=== PATIENT | female | born 1975 | race Two or more races ===

== ENCOUNTER → 2022-04-10 08:54 | Outpatient (BNVA) | payer OTHER, SELFPAY | PROVIDERS: PCP Physician Assistant; Visit Provider Psychiatry & Neurology Neurology | DX: G43.909 Migraine, unspecified, not intractable, without status migrainosus (principal); R42 Dizziness and giddiness; M54.2 Cervicalgia | CPT/HCPCS: 99202 ==

== ENCOUNTER → 2022-05-08 08:37 | Outpatient (BNVA) | payer OTHER, SELFPAY | PROVIDERS: PCP Physician Assistant; Visit Provider Nurse Practitioner Family | DX: G43.909 Migraine, unspecified, not intractable, without status migrainosus (principal); M54.2 Cervicalgia; R42 Dizziness and giddiness | CPT/HCPCS: 99212 ==

== ENCOUNTER → 2022-08-14 13:50 | Outpatient (BNVA) | payer OTHER, SELFPAY | PROVIDERS: PCP Physician Assistant; Visit Provider Nurse Practitioner Family | DX: R42 Dizziness and giddiness (principal); G43.909 Migraine, unspecified, not intractable, without status migrainosus; M54.2 Cervicalgia | CPT/HCPCS: 99212 ==

== ENCOUNTER → 2022-11-17 10:37 | Outpatient (BNVA) | payer OTHER, SELFPAY | PROVIDERS: PCP Physician Assistant; Visit Provider Nurse Practitioner Family | DX: G43.909 Migraine, unspecified, not intractable, without status migrainosus (principal); M54.2 Cervicalgia; R42 Dizziness and giddiness | CPT/HCPCS: 99212 ==

== ENCOUNTER → 2023-03-16 13:52 | Outpatient (BNVA) | payer MEDICAID, SELFPAY | PROVIDERS: PCP Physician Assistant; Visit Provider Nurse Practitioner Family | DX: G43.909 Migraine, unspecified, not intractable, without status migrainosus (principal); M54.2 Cervicalgia; R42 Dizziness and giddiness | CPT/HCPCS: 99212 ==

== ENCOUNTER 2023-07-16 13:42 | Outpatient (AMB) | payer MEDICAID, SELFPAY ==
[2023-07-16 13:52] VITALS: BP 124/88; PULSE 74; O2SAT 99; BMI 34.1
--- NOTE | 2023-07-16 13:52 | MHC.OFFVIS ---
Intake Vital Signs 07/16/23 13:52 Height 5 ft 7 in Weight 217 lb 8 oz BMI 34.1 BP 124/88 Blood Pressure Location Rt brachial Position Sitting Pulse 74 Pulse Source Pulse Oximeter Pulse Oximetry (%) 99 Oxygen Delivery Method Room Air Intake Visit Reasons: 4m f/u dizziness/sleep - Conf Intake Note: Pt presents to the office today for a 4 month follow up for dizziness and sleep. Pt states her dizziness has been doing good since her last visit. Pt states she only had one episode of dizziness since her last appt. Pt states she is having insomnia but she believes it is due to a lot of things like her pain in her arm from her surgery and her fibromylagia. Allergies No Known Allergies Allergy (Verified 07/16/23 13:53) HPI HPI Comments History of Present Illness Details 47 y/o female patient presents for follow up of migraine, cervicalgia, vertigo and sleep problem. Pt reports that headache frequency intensity has improved a lot. She had really bad headache for two weeks after left hand tendon surgery. However, she did not have any headache since then. Amitriptyline helps for fibromyalgia and sleep. Pt reports vertigo has also improved. She did not need to use meclizine. She found that she feels dizzy when she had panic attack. She finished neck PT and neck pain has improved. She does daily PT exercise at home. Pt uses cyclobenzaprine 10 mg nightly. [facility] Medical History Pneumonia due to COVID-19 virus Arthritis Anemia Depression Thyroid activity decreased Memory loss Sleep disorder Headache Fibromyalgia Surgical History Hx of carpal tunnel repair Hx of partial thyroidectomy Family History Father HTN (hypertension) Diabetes Osteoarthritis Mother Diabetes Brother Diabetes Son Obese Son Pascual-Danlos syndrome type III Social History Household Members: Children Alcohol intake: never Patient Tobacco Use Status: Never used Tobacco Review of Systems Const All systems reviewed & are unremarkable except as noted in HPI and below ENT Reports Normal hearing present Neuro Reports Normal hearing present Physical Exam Vital Signs: Last Vital Signs Pulse 74 07/16/23 13:52 BP 124/88 07/16/23 13:52 Pulse Ox 99 07/16/23 13:52 Oxygen Delivery Method Room Air 07/16/23 13:52 BMI result Body Mass Index 34.1 Const General: cooperative, comfortable and no acute distress Nutritional Appearance: average body habitus Orientation/consciousness: patient oriented x3 Limitations: no limitations HEENT Head: Yes normal to inspection, Yes No palpable skull fracture present, Yes normocephalic and Yes atraumatic Eyes Pupils: Equal, round and reactive pupils present Neck Other: neck and shoulder muscle tightness. Neck: Yes full ROM and Yes supple Neuro General: patient oriented x3, gait normal, tone normal, moves all extremities, no focal motor deficits and CN's II-XI intact bilaterally Cranial nerves: Yes Facial sensation intact/muscles of mastication intact, Yes Equal, round and reactive pupils present, Yes Bilaterally intact EOM present, Yes Nystagmus not present, Yes Normal facial strength present, Yes Midline tongue present and Yes Normal hearing present Cognition (Neuro): normal cognition Gait exam (Neuro): Normal gait present Motor exam (neuro): 5/5 motor strength present throughout, Pronator motor function not present, no tremor noted, Normal motor muscle tone present throughout and Motor abnormalities not present Assessment & Plan Assessment & Plan (1) Migraine: Code(s): G43.909 - Migraine, unspecified, not intractable, without status migrainosus (2) Cervicalgia: Code(s): M54.2 - Cervicalgia (3) Vertigo: Comment: mild and likely ? vestibular dysfunction following COVID ? muscle spasm Code(s): R42 - Dizziness and giddiness Plan Advised patient to continue to take amitriptyline tp 25 mg qHS to help fibromyalgia and sleep. Continue Magnesium 400 mg qHS and vitamin B2 400 mg daily. Continue to take cyclobenzaprine 10 mg qHS as needed. Continue to take gabapentin 600 mg TID for migraine prevention and fibromyalgia. Coding Level of Care Code Est Pt Level 4 (04415) Diagnoses Migraine G43.909 Cervicalgia M54.2 Vertigo R42
== END 2023-07-16 14:16 | disposition home or self-care (01) ==
PROVIDERS: PCP Physician Assistant; Visit Provider Nurse Practitioner Family
DX: G43.909 Migraine, unspecified, not intractable, without status migrainosus (principal); M54.2 Cervicalgia; R42 Dizziness and giddiness
CPT/HCPCS: 99214

== ENCOUNTER → 2023-07-16 13:42 | Outpatient (BNVA) | payer MEDICAID, SELFPAY | PROVIDERS: PCP Physician Assistant; Visit Provider Nurse Practitioner Family | DX: R42 Dizziness and giddiness (principal); G43.909 Migraine, unspecified, not intractable, without status migrainosus; M54.2 Cervicalgia; Z79.899 Other long term (current) drug therapy | CPT/HCPCS: 99212 ==

== ENCOUNTER 2024-01-14 12:34 | Outpatient (AMB) | payer MEDICAID, SELFPAY ==
--- NOTE | 2024-01-14 12:59 | A.OFFVIS_ITS ---
Intake Vital Signs 01/14/24 13:09 Height 5 ft 7 in Weight 228 lb 2 oz BMI 35.7 BP 134/80 Blood Pressure Location Rt brachial Position Sitting Pulse 72 Pulse Source Pulse Oximeter Pulse Oximetry (%) 99 Oxygen Delivery Method Room Air Intake Visit Reasons: 6 mnts f/u for dizziness/sleep Intake Note: Patient presents for 6 moths F/U. Lots of headaches Allergies No Known Allergies Allergy (Verified 01/14/24 13:05) HPI HPI Comments History of Present Illness Details 48 y/o female patient presents for follo w up of migraine, cervicalgia, vertigo and sleep problem. Pt reports that headache frequency and intensity has improved a lot. Anxiety usually triggers headache. She still can have mild headache, three times a week, but it does not happen every week. Excedrin migraine usually helps to reduce the headache. She takes magnesium 400 mg qHS and vitamin B2 400 mg qdaily. Amitriptyline 25 mg helps for fibromyalgia and it helps her sleep better. Pt reports vertigo has also improved. Had a one episode couple of months ago. She did not need to use meclizine. She found that she feels dizzy when she had panic attack. She finished neck PT and neck pain has improved. She does daily PT exercise at home. Pt uses cyclobenzaprine 10 mg nightly. She started exercise, goes to gym. [facility] Medical History (Updated 01/14/24 @ 13:08 by Marian Buchanan CMA) Tendonitis Pneumonia due to COVID-19 virus Arthritis Anemia Depression Thyroid activity decreased Memory loss Sleep disorder Headache Fibromyalgia Surgical History Hx of carpal tunnel repair Hx of partial thyroidectomy Family History Father HTN (hypertension) Diabetes Osteoarthritis Mother Diabetes Brother Diabetes Son Obese Son Pascual-Danlos syndrome type III Social History Household Members: Children Alcohol intake: never Patient Tobacco Use Status: Never used Tobacco Review of Systems Const All systems reviewed & are unremarkable except as noted in HPI and below ENT Reports Normal hearing present Neuro Reports Normal hearing present Physical Exam Vital Signs: Last Vital Signs Pulse 72 01/14/24 13:09 BP 134/80 01/14/24 13:09 Pulse Ox 99 01/14/24 13:09 Oxygen Delivery Method Room Air 01/14/24 13:09 BMI result Body Mass Index 35.7 Const General: cooperative, comfortable and no acute distress Nutritional Appearance: average body habitus Orientation/consciousness: patient oriented x3 Limitations: no limitations HEENT Head: Yes normal to inspection, Yes No palpable skull fracture present, Yes normocephalic and Yes atraumatic Eyes Pupils: Equal, round and reactive pupils present Neck Other: neck and shoulder muscle tightness. Neck: Yes full ROM and Yes supple Neuro General: patient oriented x3, gait normal, tone normal, moves all extremities, no focal motor deficits and CN's II-XI intact bilaterally Cranial nerves: Yes Facial sensation intact/muscles of mastication intact, Yes Equal, round and reactive pupils present, Yes Bilaterally intact EOM present, Yes Nystagmus not present, Yes Normal facial strength present, Yes Midline tongue present and Yes Normal hearing present Cognition (Neuro): normal cognition Gait exam (Neuro): Normal gait present Motor exam (neuro): 5/5 motor strength present throughout, Pronator motor function not present, no tremor noted, Normal motor muscle tone present throughout and Motor abnormalities not present Assessment & Plan Assessment & Plan (1) Migraine: Code(s): G43.909 - Migraine, unspecified, not intractable, without status migrainosus (2) Cervicalgia: Code(s): M54.2 - Cervicalgia (3) Vertigo: Comment: mild and likely ? vestibular dysfunction following COVID ? muscle spasm Code(s): R42 - Dizziness and giddiness Plan Advised patient to continue to take amitriptyline tp 25 mg qHS to help fibromyalgia and sleep. Continue Magnesium 400 mg qHS and vitamin B2 400 mg daily. Continue to take cyclobenzaprine 10 mg qHS as needed. Continue to take gabapentin 600 mg TID for migraine prevention and fibromyalgia. Coding Level of Care Code Est Pt Level 4 (76785) Diagnoses Migraine G43.909 Cervicalgia M54.2 Vertigo R42
[2024-01-14 13:09] VITALS: BP 134/80; PULSE 72; O2SAT 99; BMI 35.7
== END 2024-01-14 14:19 | disposition home or self-care (01) ==
PROVIDERS: PCP Physician Assistant; Visit Provider Nurse Practitioner Family
DX: G43.909 Migraine, unspecified, not intractable, without status migrainosus (principal); M54.2 Cervicalgia; R42 Dizziness and giddiness
CPT/HCPCS: 99214

== ENCOUNTER → 2024-01-14 12:34 | Outpatient (BNVA) | payer MEDICAID, SELFPAY | PROVIDERS: PCP Physician Assistant; Visit Provider Nurse Practitioner Family | DX: G43.909 Migraine, unspecified, not intractable, without status migrainosus (principal); M54.2 Cervicalgia; R42 Dizziness and giddiness | CPT/HCPCS: 99212 ==

== ENCOUNTER 2024-07-15 10:48 | Outpatient (AMB) | payer MEDICAID, SELFPAY ==
[2024-07-15 10:50] VITALS: BP 124/82; PULSE 82; O2SAT 99; BMI 35.2
--- NOTE | 2024-07-15 10:50 | A.OFFVIS_ITS ---
Vital Signs 07/15/24 10:50 Height 5 ft 7 in Weight 225 lb BMI 35.2 BP 124/82 Blood Pressure Location Rt brachial Position Sitting Pulse 82 Pulse Source Pulse Oximeter Pulse Oximetry (%) 99 Oxygen Delivery Method Room Air Intake Visit Reasons: Follow up dizziness/sleep Intake Note: Patient presents for follow up dizziness/sleep. patient states dizziness are coming and going now instead of frequent. Allergies No Known Allergies Allergy (Verified 07/15/24 10:53) Medication List - Last Reconciled 07/15/24 by JALEN Mcdowell amitriptyline 25 mg PO BEDTIME 30 days azithromycin For 500 mg dose pack: take 500 mg once daily for 3 days PO calcium carbonate (Calcium 600) 600 mg PO DAILY cyclobenzaprine 10 mg PO BEDTIME diclofenac sodium 75 mg PO BID PRN docusate sodium 100 mg PO DAILY ethambutol 400 mg PO 3XW gabapentin 600 mg PO TID magnesium oxide 400 mg PO BEDTIME 30 days meclizine 25 mg PO TID PRN riboflavin (vitamin B2) 400 mg PO DAILY 30 days rifampin 600 mg PO DAILY HPI Comments Details: 48-yr-old female presents for f/u visit of migraine, dizziness. Pt was previously seen by our former colleague Leobardo Brandon NP. 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 She would like to discuss previous brain MRI results showing non-specific left cerebral white matter changes. She has family h/o MS. She is having more headaches which are stronger overall. Headaches are worse when she is more stressed. She describes a severe pounding bilateral frontal headache a/w photophobia, phonophobia, nausea, and left lateral occipital and neck pain. She is having 2-3 migraine attacks per week, which last through the morning. She uses Excedrin which does help if she takes it when the headache is milder, but not if it more severe. She may feel dizzy in the morning. She also feels more tight and stiff in the morning- she attributes this to her fibromyalgia. She is prone to swelling in her abdomen, her legs, and especially her ankles. It is hard for her to be physically active d/t the headaches, stiffness, and pain. She feels depressed and anxious d/t her mx medical issues which cause her to be unable to work. She is f/b [facility] for her fibromyalgia. Taking Gabapentin 600mg bid-tid, as it can make her sleepy. She has low back pain as well- she is f/b [facility]. She has fatigue, and difficulty sleeping which she attributes to her hip and back pain. She has a h/o mild sleep apnea- but she is not using a CPAP machine as she states she was told her GENEVIEVE was mild. She has gained > 10lbs in the last year. [facility] Medical History (Updated 07/15/24 @ 17:48 by JALEN Mcdowell) Tendonitis Pneumonia due to COVID-19 virus Arthritis Anemia Depression Thyroid activity decreased Memory loss Sleep disorder Headache Fibromyalgia Surgical History Hx of carpal tunnel repair Hx of partial thyroidectomy Family History Father HTN (hypertension) Diabetes Osteoarthritis Mother Diabetes Brother Diabetes Son Obese Son Pascual-Danlos syndrome type III Social History Household Members: Children Alcohol intake: never Patient Tobacco Use Status: Never used Tobacco Physical Exam Vital Signs: Last Vital Signs Pulse 82 07/15/24 10:50 BP 124/82 07/15/24 10:50 Pulse Ox 99 07/15/24 10:50 Oxygen Delivery Method Room Air 07/15/24 10:50 BMI result Body Mass Index 35.2 Const General: cooperative and no acute distress Orientation/consciousness: patient oriented x3 Resp Effort & Inspection: normal respiratory effort and able to speak in complete sentences Neuro General: patient oriented x3 Cranial nerves: Yes CN's II-XII intact bilaterally Cognition (Neuro): normal cognition Psych Appearance: grossly normal Mental Status: mental status grossly normal Speech and movement: Normal speech and movement present Affect: normal affect Attitude: cooperative Assessment & Plan Assessment & Plan (1) Worsening headaches: Code(s): R51.9 - Headache, unspecified Category: Medical (2) Migraine: Code(s): G43.909 - Migraine, unspecified, not intractable, without status migrainosus Category: Medical (3) Obstructive sleep apnea: Comment: has never tried CPAP tx Code(s): G47.33 - Obstructive sleep apnea (adult) (pediatric) Category: Medical (4) Vertigo: Comment: mild and likely ? vestibular dysfunction following COVID ? muscle spasm Code(s): R42 - Dizziness and giddiness Category: Medical (5) Fibromyalgia: Code(s): M79.7 - Fibromyalgia Category: Medical (6) White matter abnormality on MRI of brain: Code(s): R90.82 - White matter disease, unspecified Category: Medical Plan Pt advsied to undergo brain MRI w/wo to assess status of white matter changes in setting of worsening headaches, chronic Mycobacterium chimaera infection. Pt may benefit from revisiting and tx'ing her GENEVIEVE status. Call placed to her sewing machine operator paper bags Dr Mitchell at [facility] to discuss. Order sent for pro-biotic and pt encouraged to eat yogurt as this may reduce some of her vaginal symptoms. For overall headache management: It is important to practice good self-care, including but not limited to eating a healthy diet, drinking enough fluids (typically 64 oz per day), maintaining a good sleep routine, and engaging in regular physical activity (typically 30-45 minutes of moderate physical activity 5 days per week). To help us better understand your headache: Track headaches. For acute headache treatment: It is important to take as needed acute medications at the first sign of headache, however you want to avoid taking most as needed headache too often as this can lead to medication overuse/adaptation headaches. Trial Sumatriptan 100mg tab, 1/2 - 1 tab (50-100mg) at onset of headache, may repeat in 2 hours. Max of 2 tabs (200mg) per 24 hours. May adjunct with OTC Tylenol 650mg q 4 hours, Ibuprofen 600mg q 6 hours, or Naproxen 440mg q 12 hrs prn. Potential adverse effects of triptans, include but are not limited to nausea, fatigue, chest tightness/tingling (usually passes within a few minutes), medication overuse headaches. Previous acute migraine medication trials: excedrin- not always effective Acute migraine medication contraindications: none at this time For headache prevention medication: Preventative medications should be taken routinely as prescribed for best effect, it may take several weeks to see full effect. Continue Riboflavin 400mg qam Continue Magnesium 400mg qhs Start Propranolol 60mg ER qhs. Potential side effects include but are not limited to fatigue, lightheadedness, low blood pressure, low heart rate, asthma/respiratory disease exacerbation, weight gain, hair loss, sexual dysfunction. Continue Amitriptyline 25mg qhs for now- cannot increase dose as pt already has dry mouth//constipation. 1 month after starting propranolol- try weaning off of amitriptyline. Previous migraine prevention medication trials: none Migraine prevention medication contraindications: none at this time Will follow-up upon review of above and patient to follow-up in clinic in 6 months or sooner prn. Orders: Orders MR head/brain wo/w con Today A31.0 - Pulmonary mycobacterial infection, R42 - Dizziness and giddiness, R51.9 - Headache, unspecified, R90.82 - White matter disease, unspecified Medications: New lactobacillus combination no.9 (Adult 50 Plus Probiotic) 4,000 mmu cells PO DAILY 30 days 30 caps 3RF sumatriptan succinate (0.5 - 1 x 100 mg) 50 - 100 mg orally at onset of headache, may repeat in 2 hrs PRN; max 2 tabs per day or 4 tabs/week (may take with Ibuprofen) 30 days 12 tabs 6RF migraine headache propranolol ER 60 mg PO BEDTIME 30 days 30 caps 3RF Refilled magnesium oxide 400 mg PO BEDTIME 30 days 30 caps 6RF riboflavin (vitamin B2) 400 mg PO DAILY 30 days 30 tabs 6RF Coding Level of Care Code Est Pt Level 4 (46871) Complex EM visit Add On G2211 Diagnoses Worsening headaches R51.9 Migraine G43.909 Obstructive sleep apnea G47.33 Vertigo R42 Fibromyalgia M79.7 White matter abnormality on MRI of brain R90.82
== END 2024-07-15 12:01 | disposition home or self-care (01) ==
PROVIDERS: PCP Physician Assistant; Visit Provider Nurse Practitioner Family
DX: R51.9 Headache, unspecified (principal); G43.909 Migraine, unspecified, not intractable, without status migrainosus; G47.33 Obstructive sleep apnea (adult) (pediatric); R42 Dizziness and giddiness; M79.7 Fibromyalgia; R90.82 White matter disease, unspecified
CPT/HCPCS: 99214

== ENCOUNTER → 2024-07-15 10:48 | Outpatient (BNVA) | payer MEDICAID, SELFPAY | PROVIDERS: PCP Physician Assistant; Visit Provider Nurse Practitioner Family | DX: G43.909 Migraine, unspecified, not intractable, without status migrainosus (principal); G47.33 Obstructive sleep apnea (adult) (pediatric); R42 Dizziness and giddiness; M79.7 Fibromyalgia; R09.82 Postnasal drip; A31.0 Pulmonary mycobacterial infection | CPT/HCPCS: 99212 ==

== ENCOUNTER 2024-08-09 10:00 | Outpatient (REF) | payer MEDICAID, SELFPAY ==
--- NOTE | ~2024-08-09 | MR_ITS ---
EXAMINATION: MR BRAIN WITHOUT AND WITH CONTRAST CLINICAL INFORMATION: Headaches. COMPARISON: CT head from 01/17/2016. TECHNIQUE: MRI of the brain was obtained using routine sequences without and following the administration of 10 mL of Gadavist intravenous contrast. FINDINGS: No focal restricted diffusion is demonstrated to suggest acute or subacute cerebral ischemia. No evidence of acute or chronic hemorrhagic products on heme-sensitive imaging. Few nonspecific scattered foci of T2 FLAIR hyperintensity within the bifrontal lobes. No additional parenchymal signal abnormalities. The ventricles are normal in morphology and size. No abnormal mass effect. No midline shift. Normal appearance of the pituitary gland. Normal positioning of the cerebellar tonsils. Normal arterial and venous vascular flow voids are present. No abnormal contrast enhancement. Normal, homogeneous marrow signal. Mild mucosal thickening of the paranasal sinuses. No signal abnormalities within the mastoids. MR/MR head/brain wo/w con IMPRESSION: 1. No acute intracranial abnormalities. No abnormal intracranial enhancement. 2. Minimal nonspecific white matter changes. Electronically signed by: Mars Urbina DO 09/21/2024 05:45 AM STEPHANIE
[2024-08-09] MEDS: gadobutroL 10 ML VIAL IVPUSH (11:18)
== END 2024-08-09 10:01 | disposition home or self-care (01) ==
LOC: HO.MRI 10:00
PROVIDERS: PCP Physician Assistant; Visit Provider Nurse Practitioner Family
DX: R51.9 Headache, unspecified (principal); R90.82 White matter disease, unspecified; R42 Dizziness and giddiness; A31.0 Pulmonary mycobacterial infection
CPT/HCPCS: 70553; A9585

== ENCOUNTER → 2024-09-19 20:30 | Outpatient (BNV) | payer MEDICAID, SELFPAY | PROVIDERS: PCP Physician Assistant; Visit Provider Psychiatry & Neurology Neurology | DX: R06.83 Snoring (principal) | CPT/HCPCS: 95810 ==

== ENCOUNTER → 2024-09-19 20:30 | Outpatient (REF) | payer MEDICAID, SELFPAY ==
--- OUTSIDE RECORDS SUMMARY | 2024-09-21 18:13 | XMS_ITS | Continuity of Care Document ---
Author Organization [facility] Address [address] [place] [id number]- Care Team Providers Care Shuttle Operator Name Role Phone Dylan Rico Primary Care Physician Encounter [facility] [id number] Date(s): 08/11/24 - 09/10/24 [facility] [address] [place] [id number]- Attending Physician: Sindy Dejesus Admitting Physician: Sindy Dejesus Referring Physician: Sindy Dejesus Referring Physician: Farideh Heaton Referring Physician: John Canada RN Encounter Type: Triage Allergies, Adverse Reactions, Alerts No Known Medication Allergies Medications amitriptyline 10 mg oral tablet 10 mg, 1, tablet, By Mouth, Daily at bedtime, Refills 0, Maintenance, 03/24/22 7:01:00 AM EDT, Partial fill upon patient request if the prescription is for a schedule II opioid drug. Start Date: 03/24/22 Status: Ordered Repeat number: 1 azithromycin 500 mg oral tablet See Instructions, 1 tablet By Mouth three times per week, # 30 tablet, 11 Refills, Maintenance, 07/18/24 3:13:00 PM EDT, [id number], Partial fill upon patient request if the prescription is for a schedule II opioid drug., 163, cm, 07/10/24 10:22:00 EDT, Height, 104.9, kg, 07/10/24 4: 01:00 EDT, Dry Weight Start Date: 07/18/24 Status: Ordered Quantity: 30.0 Unit: tablet Repeat number: 12 budesonide-formoterol 80 mcg-4.5 mcg/inh inhalation aerosol with adapter 2, puffs, Inhalation, 2 times a day, # 1 each, Refills 11, Tot. Refills 11, Maintenance, 08/03/24 11:06:00 AM EDT, Aerosol, Route to Pharmacy Electronically, [id number], [facility] #[id number], 163, cm, 08/03/24 10:29:00 EDT, Height, 104.9, kg, 07/10/24 4:01:00 EDT, Dry Weight Start Date: 08/03/24 Status: Ordered Quantity: 1.0 Unit: each Repeat number: 12 Compression Stockings See Instructions, # 2 each, Refills 1, Tot. Refills 1, Maintenance, surgical, thigh high length 20-30 mm Hg Dx: Varicose Veins, 01/22/21 4:39:00 PM EDT, Supply Start Date: 01/22/21 Status: Ordered Quantity: 2.0 Unit: each Repeat number: 2 ethambutol 400 mg oral tablet See Instructions, 2,400mg three times per week, # 216 each, 5 Refills, Acute 10/12/24 10:13:00 AM EST, 09/16/24 10:56:00 AM EST, [facility], Partial fill upon patient request if the prescription is for a schedule II opioid drug., 163, cm, 07/10/24 10:22:00 EDT, Height, 104.9, kg, 07/10/24 4:01:00 EDT, Dry Weight Start Date: 09/16/24 Stop Date: 10/12/24 Status: Ordered Quantity: 216.0 Unit: each Repeat number: 6 Indication: Other fatigue ethambutol 400 mg oral tablet See Instructions, 2,400mg three times per week, # 216 each, 5 Refills, Maintenance, 10/12/24 10:13:00AM EST, [facility] #[id number], Partial fill upon patient request if the prescription is for aschedule II opioid drug., 163, cm, 07/10/24 10:22:00 EDT, Height, 104.9, kg, 07/10/24 4:01:00 EDT, Dry Weight Start Date: 10/12/24 Status: Ordered Quantity: 216.0 Unit: each Repeat number: 6 Indication: Other fatigue ethambutol 400 mg oral tablet See Instructions, 2,400mg three times per week, # 216 each, 1 Refills, Acute 09/16/24 10:56:00 AM EST, 07/14/24 1:36:00 PM EDT, [facility] #[id number], Partial fill upon patient request if the prescription is for a schedule II opioid drug., 163, cm, 07/10/24 10:22:00 EDT, Height, 104.9, kg, 07/10/24 4:01:00 EDT, Dry Weight Start Date: 07/14/24 Stop Date: 09/16/24 Status: Ordered Quantity: 216.0 Unit: each Repeat number: 2 Indication: Other fatigue Gabapentin = 600 mg, By Mouth, 2 times a day, PRN Other, Fibromyalgia pain, 0 Refills, Maintenance, 02/15/21 1:57:00 PM EDT, Partial fill upon patient request if the prescription is for a schedule II opioid drug. Start Date: 02/15/21 Status: Ordered Repeat number: 1 Metamucil 500 mg oral capsule 2 capsule = 1,000 mg, By Mouth, Daily, PRN for constipation, # 100 capsule, 1 Refills, Maintenance,06/02/22 9:10:00 AM EDT, Capsule, [facility] #[id number], Partial fill upon patient request if the prescription is for a schedule II opioid drug., 168, cm, 06/02/22 8:52:00 EDT, Height Start Date: 06/02/22 Status: Ordered Quantity: 100.0 Unit: capsule Repeat number: 2 Mirena 52 mg intrauterine device 1 each = 52 mg, Once, 0 Refills, Maintenance, 06/02/22 8:54:00 AM EDT, Partial fill upon patient request if the prescription is for a schedule II opioid drug. Start Date: 06/02/22 Status: Ordered Repeat number: 1 rifampin 300 mg oral capsule See Instructions, 2 capsule By three times per week, # 72 each, 5 Refills, Acute 10/12/24 10:13:00 AMEST, 07/16/24 4:51:00 PM EDT, [facility], Partial fill upon patient request if the prescription is for a schedule II opioid drug., 163, cm, 07/10/24 10:22:00 EDT, Height, 104.9, kg, 07/10/24 4:01:00 EDT, Dry Weight Start Date: 07/16/24 Stop Date: 10/12/24 Status: Ordered Quantity: 72.0 Unit: each Repeat number: 6 rifampin 300 mg oral capsule See Instructions, 2 capsule By three times per week, # 72 each, 5 Refills, Maintenance, 10/12/24 10:13:00 AM EST, [facility] #[id number], Partial fill upon patient request if the prescription is for a schedule II opioid drug., 163, cm, 07/10/24 10:22:00 EDT, Height, 104.9, kg, 07/10/24 4:01:00 EDT, Dry Weight Start Date: 10/12/24 Status: Ordered Quantity: 72.0 Unit: each Repeat number: 6 rifampin 300 mg oral capsule See Instructions, 2 capsule By three times per week, # 72 each, 1 Refills, Acute 09/16/24 10:57:00 AM EST, 07/14/24 1:36:00 PM EDT, [facility] #[id number], Partial fill upon patient request if theprescription is for a schedule II opioid drug., 163, cm, 07/10/24 10:22:00 EDT, Height, 104.9, kg, 07/10/24 4:01:00 EDT, Dry Weight Start Date: 07/14/24 Stop Date: 09/16/24 Status: Ordered Quantity: 72.0 Unit: each Repeat number: 2 Problem List Condition Confirmation Course Effective Dates Status Health St atus Informant Fatigue Confirmed Active Fibromyalgia Confirmed Active Headache Confirmed Active Insomnia Confirmed Active Obstructive sleep apnea Confirmed Active Severe obesity (BMI 35.0-39.9) with comorbidity Confirmed Active Social History Social History Type Response Tobacco Use: Never smoked.. Sex Sex Representation Female (finding) Radiology * Event Display: CT Scan Chest, Non- BH Authored Date: * Event Display: CT Scan Chest, Non- BH Authored Date: [id number] Patient Care team information Care Team Personnel Name: Dylan Rico Position: S Outreach Member Role: PCP Address: [address] [place] [address] Telecom: Care Team Related Persons Name: GUILLERMO AVERY Name: GUILLERMO AVERY SECONDARY Name: WALLCAE WOLFF Name: WALLACE WOLFF PRIMARY Insurance Providers Guarantor name: ENRIQUEMonserrat WAYNEY [facility] Information #: 1 Payer: [employer] Member Number: NA Policy Number: NA Group Number: NA
== END ==
LOC: HO.SL 20:30
PROVIDERS: PCP Physician Assistant; Visit Provider Nurse Practitioner Family
DX: G47.33 Obstructive sleep apnea (adult) (pediatric) (principal); J45.909 Unspecified asthma, uncomplicated; A31.0 Pulmonary mycobacterial infection
CPT/HCPCS: 95810

== ENCOUNTER 2025-01-23 12:03 | Outpatient (AMB) | payer MEDICAID, SELFPAY ==
--- NOTE | 2025-01-23 13:01 | A.OFFVIS_ITS ---
Vital Signs 3 01/23/25 13:02 Height 5 ft 7 in Weight 215 lb BMI 33.7 BP 120/90 H Blood Pressure Location Rt brachial Position Sitting Pulse 80 Pulse Source Pulse Oximeter Pulse Oximetry (%) 100 Oxygen Delivery Method Room Air Intake Visit Reasons: Follow Up Intake Note: Follow up Migraines. Ringing in ears. Recent med that was prescribe for migraines has been helpin Tubing Machine Operator Required: No Accompanied by: Self / Same As Patient Allergies Penicillins Allergy (Severe, Verified 01/23/25 13:09) Rash Medication List - Last Reconciled 01/23/25 by JALEN Mcdowell amitriptyline 25 mg PO BEDTIME 30 days azithromycin For 500 mg dose pack: take 500 mg once daily for 3 days PO calcium carbonate (Calcium 600) 600 mg PO DAILY cyclobenzaprine 10 mg PO BEDTIME diclofenac sodium 75 mg PO BID PRN docusate sodium 100 mg PO DAILY ethambutol 400 mg PO 3XW gabapentin 600 mg PO TID lactobacillus combination no.9 (Adult 50 Plus Probiotic) 4,000 mmu cells PO DAILY 30 days magnesium oxide 400 mg PO BEDTIME 30 days meclizine 25 mg PO TID PRN propranolol ER 60 mg PO BEDTIME 30 days riboflavin (vitamin B2) 400 mg PO DAILY 30 days sumatriptan succinate 50 - 100 mg orally at onset of headache, may repeat in 2 hrs PRN; max 2 tabs per day or 4 tabs/week (may take with Ibuprofen) 30 days HPI Comments Details: 49-year-old female presents for follow-up of migraine and dizziness. She has stopped her anti-M chimera tx, as she was not tolerating it, plan is to have f/u chest CT in the summer. Pt reports she has started to have bilateral, L > R, ear high-pitched tinnitus- worse at night. Prior to the onset of the tinnitus, she had left postauricular neck pain, and did have urgent care eval at her PCP office and was tx'd w/ ABT gtts for left ear infection. On f/u w/ her PCP, she was told her ears were clear though had wax presence. She has been having left arm stabbing/burning pain s/p tendon repair last year- through [facility]. Patient has started sumatriptan, and takes at the very first sign of migraine, which is effective. Reports 3 migraine days per week, which again are responsive to sumatriptan. Started propranolol ER 60 mg q.h.s.- states maybe it is helping the headache, but is not helping sleep. Patient states she continues on amitriptyline 25 mg q.h.s. Oct 2024, sleep study did show loud snoring but did not show evidence for sleep apnea or periodic limb movements of sleep. Her psychiatrist recently ordered trazodone to help with sleep. She does note some personal stress, related to the recent sudden loss of her which has been particularly upsetting for her mother. As well as her ongoing worry regarding her son who has MS. 08/09/2024, MR/MR head/brain wo/w con IMPRESSION: 1. No acute intracranial abnormalities. No abnormal intracranial enhancement. 2. Minimal nonspecific white matter changes. 07/15/2024, previous HPI: 48-yr-old female presents for f/u visit of migraine, dizziness. Pt was previously seen by our former colleague Leobardo Brandon NP. 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 She would like to discuss previous brain MRI results showing non-specific left cerebral white matter changes. She has family h/o MS. She is having more headaches which are stronger overall. Headaches are worse when she is more stressed. She describes a severe pounding bilateral frontal headache a/w photophobia, phonophobia, nausea, and left lateral occipital and neck pain. She is having 2-3 migraine attacks per week, which last through the morning. She uses Excedrin which does help if she takes it when the headache is milder, but not if it more severe. She may feel dizzy in the morning. She also feels more tight and stiff in the morning- she attributes this to her fibromyalgia. She is prone to swelling in her abdomen, her legs, and especially her ankles. It is hard for her to be physically active d/t the headaches, stiffness, and pain. She feels depressed and anxious d/t her mx medical issues which cause her to be unable to work. She is f/b [facility] for her fibromyalgia. Taking Gabapentin 600mg bid-tid, as it can make her sleepy. She has low back pain as well- she is f/b [facility]. She has fatigue, and difficulty sleeping which she attributes to her hip and back pain. She has a h/o mild sleep apnea- but she is not using a CPAP machine as she states she was told her GENEVIEVE was mild. She has gained > 10lbs in the last year. [facility] Medical History Tendonitis Pneumonia due to COVID-19 virus Arthritis Anemia Depression Thyroid activity decreased Memory loss Sleep disorder Headache Fibromyalgia Surgical History Hx of carpal tunnel repair Hx of partial thyroidectomy Family History Father HTN (hypertension) Diabetes Osteoarthritis Mother Diabetes Brother Diabetes Son Obese Son Pascual-Danlos syndrome type III Social History Household Members: Children Alcohol intake: never Patient Tobacco Use Status: Never used Tobacco Physical Exam Vital Signs: Last Vital Signs Pulse 80 01/23/25 13:02 BP 120/90 H 01/23/25 13:02 Pulse Ox 100 01/23/25 13:02 Oxygen Delivery Method Room Air 01/23/25 13:02 BMI result Body Mass Index 33.7 Const General: cooperative and no acute distress Orientation/consciousness: patient oriented x3 HEENT Other: Right TM- occluded by wax Left TM-mild effussion w/o erythema, purulence, pain Resp Effort & Inspection: normal respiratory effort and able to speak in complete sentences Neuro Other: Wearing left forearm brace Steady gait with cane General: patient oriented x3 Cranial nerves: Yes CN's II-XII intact bilaterally Cognition (Neuro): normal cognition Psych Appearance: grossly normal Mental Status: mental status grossly normal Speech and movement: Normal speech and movement present Affect: normal affect Attitude: cooperative Results Reviewed Results Reviewed: Assessment & Plan Assessment & Plan (1) Paresthesia of left upper extremity: Code(s): R20.2 - Paresthesia of skin Category: Medical (2) Migraine: Code(s): G43.909 - Migraine, unspecified, not intractable, without status migrainosus Category: Medical Qualifiers: Migraine type: migraine (< 15 days per month) without aura Status migrainosus presence: without status migrainosus Intractability: not intractable Qualified Code(s): G43.009 - Migraine without aura, not intractable, without status migrainosus (3) White matter abnormality on MRI of brain: Code(s): R90.82 - White matter disease, unspecified Category: Medical (4) Snoring: Code(s): R06.83 - Snoring Category: Medical (5) Bilateral tinnitus: Code(s): H93.13 - Tinnitus, bilateral Category: Medical Plan Reviewed brain MRI with and without contrast report and images with patient, white matter changes are very mild, not consistent with a demyelinating process. For sleep difficulties: Reviewed in-lab sleep study results, showed lab snoring however there were no signs of sleep apnea or periodic limb movements of sleep. * We will request ENT consult for evaluation snoring. Psychiatrist has recently advise patient to start trazodone 50 mg daily at bedtime- advise patient to may try this, however to monitor for changes in headache, as trazodone can exacerbate migraine symptoms. For recent onset bilateral left greater than right tinnitus: Brain MRI results reassuring, however MRI was completed prior to onset of tinnitus. Trial OTC debrox drops to right ear. Trial loratadine 10 mg p.o. q.h.s., and hopes this helps left TM effusion without signs of active infection. For LUE paresthesias and generalized fibromyalgia type pain old Check labs for common underlying etiologies We will request LUE EMG/NCS. For overall headache management: It is important to practice good self-care, including but not limited to eating a healthy diet, drinking enough fluids (typically 64 oz per day), maintaining a good sleep routine, and engaging in regular physical activity (typically 30-45 minutes of moderate physical activity 5 days per week). Track headaches. For acute headache treatment: Continue to take as needed acute medications at the first sign of headache, however you want to avoid taking most as needed headache too often as this can lead to medication overuse/adaptation headaches. Continue Sumatriptan 100mg tab, 1/2 - 1 tab (50-100mg) at onset of headache, may repeat in 2 hours. Max of 2 tabs (200mg) per 24 hours. May adjunct with OTC Tylenol 650mg q 4 hours, Ibuprofen 600mg q 6 hours, or Naproxen 440mg q 12 hrs prn. Previous acute migraine medication trials: excedrin- not always effective Acute migraine medication contraindications: none at this time For headache prevention medication: Continue Riboflavin 400mg qam Continue Magnesium 400mg qhs Continue Propranolol 60mg ER qhs. Continue Amitriptyline 25mg qhs for now- cannot increase dose as pt already has dry mouth//constipation. Previous migraine prevention medication trials: none Migraine prevention medication contraindications: none at this time Will follow-up upon review of above and patient to follow-up in clinic in 6 months or sooner prn. Orders: Orders 2 Complete Blood Count Auto Diff Today D64.9 - Anemia, unspecified, R20.2 - Paresthesia of skin, R73.03 - Prediabetes Vitamin B12 and Folate Today D64.9 - Anemia, unspecified, R20.2 - Paresthesia of skin, R73.03 - Prediabetes TSH reflex Free T4 Today D64.9 - Anemia, unspecified, R20.2 - Paresthesia of skin, R73.03 - Prediabetes Vitamin D 25-OH (D2 and D3) Today D64.9 - Anemia, unspecified, R20.2 - Paresthesia of skin, R73.03 - Prediabetes Methylmalonic Acid Today D64.9 - Anemia, unspecified, R20.2 - Paresthesia of skin, R73.03 - Prediabetes Homocysteine Today D64.9 - Anemia, unspecified, R20.2 - Paresthesia of skin, R73.03 - Prediabetes IRON PROFILE Today D64.9 - Anemia, unspecified, R20.2 - Paresthesia of skin, R73.03 - Prediabetes Hemoglobin A1c Today D64.9 - Anemia, unspecified, R20.2 - Paresthesia of skin, R73.03 - Prediabetes Comprehensive Met. Panel Today D64.9 - Anemia, unspecified, R20.2 - Paresthesia of skin, R73.03 - Prediabetes Folate Today D64.9 - Anemia, unspecified, R20.2 - Paresthesia of skin, R73.03 - Prediabetes Vitamin B6 Today D64.9 - Anemia, unspecified, R20.2 - Paresthesia of skin, R73.03 - Prediabetes Vitamin B1 Today D64.9 - Anemia, unspecified, R20.2 - Paresthesia of skin, R73.03 - Prediabetes Ferritin Today D64.9 - Anemia, unspecified, R20.2 - Paresthesia of skin, R73.03 - Prediabetes NE electromyogram (EMG) Today R20.2 - Paresthesia of skin, Z98.890 - Other specified postprocedural states NE nerve conduction velocity Today R20.2 - Paresthesia of skin, Z98.890 - Other specified postprocedural states Referrals 2 Ear/Nose/Throat Referral H93.13 - Tinnitus, bilateral, R06.83 - Snoring Medications: New 2 loratadine 10 mg PO DAILY 30 days 30 tabs 3RF Changed 2 From magnesium oxide 400 mg PO BEDTIME 30 days 30 caps 6RF To magnesium oxide 400 mg PO BEDTIME 90 days 90 caps 3RF From riboflavin (vitamin B2) 400 mg PO DAILY 30 days 30 tabs 6RF To riboflavin (vitamin B2) 400 mg PO DAILY 90 days 90 tabs 3RF Coding Level of Care Code Est Pt Level 4 (78513) Complex EM visit Add On G2211 Diagnoses Paresthesia of left upper extremity R20.2 Migraine without aura and without status migrainosus, not intractable G43.009 Migraine type: migraine (< 15 days per month) without aura Status migrainosus presence: without status migrainosus Intractability: not intractable White matter abnormality on MRI of brain R90.82 Snoring R06.83 Bilateral tinnitus H93.13
[2025-01-23 13:02] VITALS: BP 120/90; PULSE 80; O2SAT 100; BMI 33.7
--- OUTSIDE RECORDS SUMMARY | 2025-01-23 14:06 | XMS_ITS | Encounter Summary ---
Author Organization [facility] Address [address] [place] [address] Care Team Providers Care Radiological Metallurgist Name Role Phone Dylan Toribio Primary Care Provider [phone] Reason for Visit * Reason Comments Telehealth (Audio) Encounter Details Date Type Department Care Team ([facility] st Contact Info) Description 01/20/2025 9:30 AM EDT / Visits [facility] [address] [place] [phone] Michel Santana, TABLE WORKER [address] [place], [place] [id number] Major depressive disorder, single episode, mild (PACE-[facility] V24) (Primary Dx) Social History Tobacco Use Types Packs/Day Years Used Date Smoking Tobacco: Never Smokeless Tobacco: Never Alcohol Use Standard Drinks/Week Comments No 0 (1 standard drink = 0.6 oz pur e alcohol) Social Connections Answer Date Recorded Connectedness 1 09/15/2024 Financial Resource Strain Answer Date R ecorded Financial Resource Strain 1 2023 Stress Answer Date Recorded Stress 1 09/15/2024 Physical Activity Answer Date Recorded Physical Activity 0 08/23/2020 Food Insecurity Answer Date Recorded Food 1 09/15/2024 Transportation Needs Answer Date Record ed Transportation 1 09/15/2024 Housing Stability Answer Date Recorded Housing 1 09/15/2024 Safety and Environment Answer Date Rafi rded Safety 1 02/15/2024 Utilities Answer Date Recorded Utilities 1 09/15/2024 Employment Answer Date Recorded Stress 0 08/23/2020 Comments No Sex and Gender Information Value Date Recorded Sex Assigned at Female 02/12/2018 11:45 AM PDT Legal Sex Female 11:09 AM PDT Gender Identity Female 02/12/2018 11:45 AM PDT Sexual Orientation Straight 11/24/2018 11 :05 AM PST documented as of this encounter Plan of Treatment Upcoming Encounters Date Type Department Care Team (Late st Contact Info) Description 02/13/2025 1:45 PM EDT / Visits [facility] [address] [place] [phone] Michel Santana, TABLE WORKER [address] [place] [address] 04/04/2025 1:00 PM EDT / Visits [facility] [address] [place] [phone] Elodia Mcclendon PMHNP [address] [place] [address] documented as of this encounter Visit Diagnoses Diagnosis Major depressive disorder, single episode, mild ([facility] V24)- Primary Major depressive disorder, single episode, mild documented in this encounter Additional Health Concerns Assessment Noted Time PHQ-9 Depression Total Score: 15 025 9:02 AM PST documented as of this encounter Care Teams Radiological Metallurgist Relationship Specialty Start Date End Date Dylan Toribio PA [address] [place] [address] PCP - General Internal Medicine 07/20/18 documented as of this encounter
--- OUTSIDE RECORDS SUMMARY | 2025-01-23 14:06 | XMS_ITS | Clinical Summary ---
Author Organization [facility] Address [address] [place] [address] Care Team Providers Care Trailer Sections Assembler Name Role Phone Miranda Bautista MD Primary Care Provider Allergies Active Allergy Reactions Criticality Noted Date Comments Penicillins 04/21/2016 Medications Medication Sig Dispensed Refills Start Date End Date Status oxyCODONE-acetaminoph en (PERCOCET) 5-325 MG per tablet Take 1 tablet by mouth every 4 (four) hours as needed. 30 tablet 0 09/08/2016 Active Social History Tobacco Use Types Packs/Day Years Used Date Smoking Tobacco: Never Alcohol Use Standard Drinks/Week Comments No 0 (1 standard drink = 0.6 oz pur e alcohol) Sex and Gender Information Value Date Recorded Sex Assigned at Not on file Gender Identity Not on file Sexual Orientation Not on file Last Filed Vital Signs Vital Sign Reading Time Taken Comments Blood Pressure 117/80 08/29/2016 10:14 AM EST Pulse 61 08/29/2016 10:14 AM EST Temperature 36.1 ??C (96.9 ??F) 08/29/2016 9:17 AM ES T Respiratory Rate 17 08/29/2016 10:00 AM EST Oxygen Saturation 100% 08/29/2016 10:14 AM EST Inhaled Oxygen Concentration - - Weight 95.7 kg (211 lb) 08/28/2016 10:20 AM EST Height 167.6 cm (5' 6 ) 08/28/2016 10:20 AM EST Body Mass Index 34.06 08/28/2016 10:20 AM EST Plan of Treatment Health Maintenance Due Date Last Done Comments Hepatitis B Vaccines (1 of 3 - 3-dose series) 1974 Hepatitis C Screening 1974 COVID-19 Vaccine (#1) 06/27/1975 Depression Screening 1986 Preventative Health Evaluation 1992 DTap / Tdap / Td (1 - Tdap) 1993 Cervical Cancer Screening (P ap Smear) 12/26/1995 Colon Cancer Screening (Colonoscopy) 12/26/2019 Influenza Vaccine (#1) 2024 Breast Cancer Screening (Mammogram) 2024 Shingrix-Zoster Vaccine (1 of 2) 2024 Pneumococcal Vaccine Aged Out No long er eligible based on patient's age to complete this topic RSV Ped < 20 months Aged Out No longe r eligible based on patient's age to complete this topic Advance Directives For more information, please contact: [phone] Latest Code Status on File Code Status Date Activated Date Inactivated Comments Full Code 08/29/2016 7:11 AM 08/29/2016 4:46 PM Thi s code status was ascertained in the following way: discussion with patient. Care Teams Trailer Sections Assembler Relationship Specialty Start Date End Date Miranda Bautista MD [address] [place] [address] PCP - General Internal Medicine 04/30/16
--- OUTSIDE RECORDS SUMMARY | 2025-01-23 14:06 | XMS_ITS | Clinical Summary ---
Author Organization [facility] Address [address] [place] [address] Care Team Providers Care Chips Screen Tender Name Role Phone Dylan Toribio Primary Care Provider [phone] Source Comments PLEASE NOTE, if this patient is a minor, it may be UNLAWFUL to discuss sensitive information that is contained in these records (such as FAMILY PLANNING, MENTAL HEALTH or SUBSTANCE ABUSE) with the minor patient's parent or other person without the patient's specific authorization.[facility] Allergies Active Allergy Reactions Criticality Noted Date Comments Amoxicillin 11/18/2024 Medications glucosamine-chondr oitin 500-400 mg tabletIndications: Primary osteoarthritis involving multiple joints Take 1 Tab by mouth 3 (three) times daily 30 Tab 05/09/20 19 Active calcium carbonate-vitamin D3 600 mg(1,500mg) -400 unit tabletIndications: Primary osteoarthritis involving multiple joints Take 1 Tab by mouth 3 (three) times daily with meals 30 Tab 3 05/09/20 19 Active famotidine (PEPCID) 20 mg tabletIndications: Dyspepsia Take 1 Tablet by mouth 2 (two) times daily 180 Tablet 1 11/25/19 22 Active ferrous sulfate 324 mg (65 mg iron) TbECIndications:Hx of iron deficiency anemia Take 1 Tablet by mouth once daily with breakfast 30 Tablet 11/25/19 22 Active levonorgestreL (MIRENA) 20 mcg/24 hours (8 yrs) 52 mg IUD 52 mg 06/02/20 22 Active magnesium oxide (MAG-OX) 400 mg (241.3 mg magnesium) tablet TAKE ONE TABLET BY MOUTH AT BEDTIME FOR 30 DAYS 03/16/20 23 Active riboflavin, vitamin B2, 400 mg tab TAKE 1 TABLET BY MOUTH DAILY FOR 30 DAYS 03/16/20 23 Active SYMBICORT 80-4.5 mcg/actuation inhaler Inhale 2 Puffs into the lungs 2 (two) times daily 05/15/20 23 Active blood pressure monitor (BLOOD PRESSURE KIT)Indications:Id iopathic hypotension Use one kit at home to monitory hypotension, goal BP 120/80 1 Kit 10/19/19 24 Active brompheniramin-phe nylephrin-DM (DIMETAPP COLD & COUGH) 1-2.5-5 mg/5 mL solutionIndication s:Subacute cough Take 5 mL by mouth every 4 to 6 (four to six) hours as needed for congestion or other reason (cough) 473 mL 11/19/19 24 Active rifAMPin (RIFADIN) 300 mg capsule TAKE 2 CAPSULES BY MOUTH THREE TIMES A WEEK 01/18/20 24 Active ethambutoL (MYAMBUTOL) 400 mg tablet TAKE 6 TABLETS BY MOUTH 3 TIMES EVERY WEEK 01/18/20 24 Active amoxicillin-pot clavulanate (AUGMENTIN) 875-125 mg per tabletIndications: Left otitis media, unspecified otitis media type Take 1 Tablet by mouth 2 (two) times daily 14 Tablet 11/04/19 25 Active predniSONE 50 mg tabletIndications: Left otitis media, unspecified otitis media type Take 1 Tablet by mouth once daily 5 Tablet 11/04/19 25 Active SUMAtriptan succinate (IMITREX) 100 mg tabletIndications: Nonintractable episodic headache, unspecified headache type Take 100 mg by mouth 11/08/19 25 Active propranolol LA (INDERAL LA) 60 mg 24 hr capsuleIndications :Nonintractable episodic headache, unspecified headache type Take 60 mg by mouth nightly at bedtime Active diclofenac potassium (CATAFLAM) 50 mg tabletIndications: Nonintractable episodic headache, unspecified headache type,Neck pain TAKE 1 TABLET BY MOUTH THREE TIMES DAILY NEEDED FOR PAIN. DO NOT COMBINE WITH OTHER NSAID CLASS MEDICATIONS SUCH IBUPROFEN OR NAPROXEN 11/09/19 25 Active tirzepatide, weight loss, (ZEPBOUND) 2.5 mg/0.5 mL pnijIndications:Fi bromyalgia,Class 1 obesity,Obstructiv e sleep apnea,Other migraine without status migrainosus, not intractable,Predia betes,Elevated blood pressure reading Inject 2.5 mg weekly for 4 weeks, doubling dose every 4 weeks until maintenance dose reached (15 mg) 2 mL 1 12/15/19 25 Active gabapentin (NEURONTIN) 600 mg tabletIndications: Fibromyalgia,Predi abetes Take 1 Tablet by mouth 3 (three) times daily 90 Tablet 2 12/15/19 25 Active tirzepatide, weight loss, (ZEPBOUND) 5 mg/0.5 mL pnijIndications:Cl ass 1 obesity,Prediabete s Inject 5 mg into the skin once a week 2 mL 1 12/30/19 25 Active traZODone (DESYREL) 50 mg tabletIndications: Insomnia, unspecified type Take 1/2 to 1 tab by mouth as needed nightly for sleep. 90 Tablet 01/18/20 25 Active escitalopram (LEXAPRO) 10 mg tabletIndications: Major depressive disorder, single episode, mild ([facility] V24) Take 1 Tablet by mouth once daily for 90 days 90 Tablet 01/18/20 25 025 Active semaglutide (OZEMPIC) 0.25 mg or 0.5 mg (2 mg/3 mL) pen injectorIndication s:Obesity (BMI 35.0-39.9 without comorbidity),Predi abetes,Severe obesity (HCC-CMS) Inject 0.25 mg into the skin once a week 1.5 mL 05/24/20 24 025 Discontin ued(Cance lled) semaglutide, weight loss, (WEGOVY) 0.25 mg/0.5 mL pnijIndications:Pr ediabetes,Obesity (BMI 35.0-39.9 without comorbidity),Sever e obesity (HCC-CMS) Inject 0.25 mg into the skin once a week 2 mL 1 09/15/20 24 025 Discontin ued(Cance lled) escitalopram (LEXAPRO) 10 mg tabletIndications: Major depressive disorder, single episode, mild ([facility] V24) Take 1 Tablet by mouth once daily for 90 days 90 Tablet 12/15/19 25 025 Discontin ued(Reord er (E-Cancel Not Sent)) Active Problems Patient Care Coordination No te Formatting of this note migh t be different from the original. Pre Visit Plan, 08/15/19, for Dylan Coon PA-C patient in for chronic issue managment. Sai Stewart. 43 y/o female presents to clinic for a f/u to chronic back pain and results of MRI L-spine evaluation. Patient was referred for an MRI on 07/26/19 at her hosp f/u to back strain, where ED providers recommended L-Spine MRI. Results of this radiology are reviewed with patient today: Lumbar disc protrusion at L4-5. 08/03/19, MR lumbar Spine WO, Findings Level L4-L5: Central right paracentral disc protrusion. No central stenosis or neural foraminal narrowing. Mild right lateral recess stenosis. Incomplete visualization fat pad anterior to the exiting L4 nerve root on the (R) suggesting possible annular abutment. Correlate with radiculopathy. Impression: 1. Focal central disc protrusion L4-5 w/o central canal stenosis or neural foraminal narrowing. Abutment of the annulus in the far lateral compartment is not completely excluded, correlate with radiculopathy. - 06/28/19, seen for lab f/u to easy bruising complaints 06/06/19. Iron amd TIBC noted as: 46 and 450. Patient started on Ferrous Sulfate 324mg (65 mg iron) tablet, delayed release, for once daily with breakfast. Instructed to f/u 2-3 months for iron studies. - [facility] in March 2019, XR lumbar showing DDD. Referred to physiatry for inj management with f/u scheduling pending completion of physiatry eval. Did patient go to physiatry for injections? - Most recent [facility] pulmonology report needed for Lung Nodule finding, last eval on record was before January's office visit. Problem Noted Date Diagnosed Date Severe obesity ([facility]) 10/19/2023 Pain in both hands 09/29/2023 H/O left wrist surgery 09/29/2023 Intractable persistent migra ine aura without cerebral infarction and with status migrainosus 09/29/2023 Financial difficulties 07/16/2023 Housing problems 07/16/2023 Obstructive sleep apnea 11/26/2022 Class 1 obesity 08/12/2022 Vertigo 07/06/2022 Constipation, chronic 06/02/2022 Fibromyalgia 09/14/2019 Protrusion of lumbar intervertebral disc 11/04/2 019 Overview (08/15/2019): 08/03/19, MR lumbar Spine WO, Findings Level L4-L5: Central right paracentral disc protrusion. No central stenosis or neural foraminal narrowing. Mild right lateral recess stenosis. Incomplete visualization fat pad anterior to the exiting L4 nerve root on the (R) suggesting possible annular abutment. Correlate with radiculopathy. Impression: 1. Focal central disc protrusion L4-5 w/o central canal stenosis or neural foraminal narrowing. Abutment of the annulus in the far lateral compartment is not completely excluded, correlate with radiculopathy. Lung nodule 07/26/2019 Overview (07/26/2019): Office Visit 07/26/18, seeen for f/u on thyroid pathology and lung nodule found on CT abd with Dylan Toribio PA-C: - Lung Nodule: Last imaging 03/08/18 - reveals Groundglass opacity and nodular density compared to prior studies (CT and 02/13/14, and Chest Xray 12/05/13, CT scan 10/23/11). There is a 7 x 6 mm nodule seen within the right middle lobe not imaged previously. Fleischner Society recommends Nodule size > 6-8 mm initial follow 3-6 months, then 9-12 months and 24 months if no change. Office visit 10/14/18, In for pulmonology Referral with Dylan Toribio PA-C: - Lung Nodule: Last imaging 03/08/18 - reveals Groundglass opacity and nodular density compared to prior studies (CT and 02/13/14, and Chest Xray 12/05/13, CT scan 10/23/11). There is a 7 x 6 mm nodule seen within the right middle lobe not imaged previously. Fleischner Society recommends Nodule size > 6-8 mm initial follow 3-6 months, then 9-12 months and 24 months if no change. Office visit 01/18/19, In for primary encounter Lung nodule with Dylan Toribio PA-C: - Last imaging 03/08/18 - reveals Groundglass opacity and nodular density compared to prior studies (CT and 02/13/14, and Chest Xray 12/05/13, CT scan 10/23/11). There is a 7 x 6 mm nodule seen within the right middle lobe not imaged previously. Fleischner Society recommends Nodule size > 6-8 mm initial follow 3-6 months, then 9-12 months and 24 months if no change. Notes from visit not obtained yet from Pulmonology. Not sure if patient attended? [facility] [facility] - 42-year-old nonsmoker female who was noted to have [address] of chest done about 2-[address] of chest was done at [facility] in [place], [place]. She was living in [place] at that time. She thinks she may have had one followup scan after that, but is not sure. She is a lifelong nonsmoker. Her medical history is notable for a left hemithyroidectomy done for a thyroid nodule, which on biopsy showed increased risk for transformation to cancer according to her. There is no family history of lung cancer. 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 INVESTIGATIVE DATA: In-office spirometry done today was near normal. FVC was 73% of predicted, FEV1 of 79% predicted, FEV1/FVC ratio was 87. CT chest done at [facility] 2-3 years ago is not available for my review at this time. IMPRESSION: Subcentimeter lung nodules [address] chest report as well as images are not available for my review at this time. PLAN: 1. Obtain prior CT chest images and result from [facility]. I will have my office request this. 2. Noncontrast CT chest for followup of her lung nodules. 3. Return for follow up after this noncontrast CT chest. DDD (degenerative disc disease), lumbar 07/26/20 19 Overview (07/26/2019): 03/29/19, [facility] Report: XR 2 View L-Spine revealed DDD at lumbar. Referral to physiatry for injection management recommended. F/u to be arranged once complete. S/P partial thyroidectomy 07/26/2019 Overview (07/26/2019): 10/07/18, [facility] Progress note, H/o partial thyroidectomy in 2014 - biopsy +ve/suspicious. Surgery with Dr. Iverson at [facility]. Grade III Ptosis of breast 07/26/2019 Overview (07/26/2019): 06/24/19, [facility] [place] [facility] Note, Enrique Samson MD: no prior breast surgery. Estimated total breast mass -750 g per side. A/P: Patient with grade 3 ptosis, largely skin excess. Based upon the Schnur sliding scale, and insurance criteria, 687 g of breast tissue would have to be removed per side for the patient to meet criteria. Given the patient's current breast size, I explained that this would constitute a near total mastectomy for her rather than breast reduction. The patient and I are in agreement that such an event would not meet her goals. We discussed the alternative of cosmetic mastopexy as a way to reduce her skin, while maintaining breast volume to improve the size, shape, appearance of her breasts. Hx of iron deficiency anemia 04/26/2018 Headache 02/12/2018 Overview (01/07/2023): 02/12/2018 [facility]- CR Spine Lumbar W Obliq min 4v Normal examination of the lumbosacral spine. There is evidence of constipation. Prediabetes 02/12/2018 Encounters Date Type Department Care Team Description 01/20/2025 9:30 AM EDT / Visits [facility] [address] [place] [phone] Michel Santana LCSW Major depressive disorder, single episode, mild (PACE-HCC V24) (Primary Dx) 01/17/2025 3:00 PM EDT / Visits [facility] [address] [place] [phone] Elodia Mcclendon PMHNP MDD (major depressive disorder), recurrent episode, moderate (HCC-CMS) (Primary Dx); Insomnia, unspecified type; Major depressive disorder, single episode, mild (PACE-HCC V24) 01/09/2025 Interim Notes [facility] [address] [place] [phone] Dylan Toribio PA Fibromyalgia (Primary Dx) 12/30/2024 8:45 AM EDT BH/MH Visits [address] [phone] Michel Santana LCSW Major depressive disorder, single episode, mild (HCC-CMS) (Primary Dx) 12/29/2024 3:20 PM EDT Office Visit [address] [phone] Dylan Toribio PA Fibromyalgia; Class 1 obesity; Obstructive sleep apnea; Other migraine without status migrainosus, not intractable; Prediabetes; Elevated blood pressure reading 12/16/2024 11:00 AM EST BH/MH Visits [address] [phone] Michel Santana LCSW Major depressive disorder, single episode, mild (HCC-CMS) (Primary Dx) 12/14/2024 9:20 AM EST Office Visit [address] [phone] Dylan Toribio PA Routine adult health maintenance (Primary Dx); Degeneration of intervertebral disc of lumbar region with discogenic back pain; Fibromyalgia; Class 1 obesity; Obstructive sleep apnea; Other migraine without status migrainosus, not intractable; Encounter for colorectal cancer screening; Perimenopausal; Prediabetes; Elevated blood pressure reading; Major depressive disorder, single episode, mild (HCC-CMS) 12/13/2024 Interim Notes [facility] [address] [place] [phone] Anna Li MA 11/18/2024 11:00 AM EST Office Visit [facility] [address] [place] [phone] Dylan Toribio PA Nonintractable episodic headache, unspecified headache type (Primary Dx); Neck pain; Ear fullness, left; Prediabetes; Class 1 obesity; Obstructive sleep apnea; Elevated blood pressure reading 11/17/2024 10:15 AM EST BH/MH Visits [address] [phone] Michel Santana LCSW Major depressive disorder, single episode, mild (HCC-CMS) (Primary Dx) 11/09/2024 Interim Notes [address] [phone] Magaly May 11/04/2024 9:00 AM EST Office Visit [address] [phone] Child, KAYLYN Whitt Left otitis media, unspecified otitis media type (Primary Dx) 10/25/2024 4:00 PM EST BH/MH Visits [address] [phone] Elodia Mcclendon, PMHNP Major depressive disorder, single episode, mild (HCC-CMS) (Primary Dx) 10/25/2024 11:00 AM EST BH/MH Visits [address] [phone] Michel Santana LCSW Major depressive disorder, single episode, mild (HCC-CMS) (Primary Dx) 10/25/2024 Travel from Last 3 Months Immunizations Immunization Administration Dates Next Due Flu, Multi Dose 0.5 ML 11/17/2019,07/26/2018 Flu, Preservative Free 07/16/2023,2021,08/29/2021,07/10 Hep B,adult,adjuvanted (HEPLISAV) 02/04/2023, PNEUMOCOCCAL POLYSACCHARIDE PPV23 12/03/2022 TDAP 10/14/2018 ZOSTER VACCINE, RECOMBINANT (SHINGRIX) 3,12/03/2022 Social History Tobacco Use Types Packs/Day Years Used Date Smoking Tobacco: Never Smokeless Tobacco: Never Tobacco Cessation:Counseling Given: Not Answered Alcohol Use Standard Drinks/Week Comments No 0 [...] Orientation Straight 11/24/2018 11 :05 AM PST Last Filed Vital Signs Vital Sign Reading Time Taken Comments Blood Pressure 108/78 12/29/2024 3:41 PM EDT Pulse 66 12/29/2024 3:41 PM EDT Temperature 36.6 ??C (97.9 ??F) 12/29/2024 3:41 PM ED T Respiratory Rate 16 12/29/2024 3:41 PM EDT Oxygen Saturation 99% 12/29/2024 3:41 PM EDT Inhaled Oxygen Concentration - - Weight 99.3 kg (219 lb) 12/29/2024 3:41 PM EDT Height 165.1 cm (5' 5 ) 12/29/2024 3:41 PM EDT Body Mass Index 36.44 12/29/2024 3:41 PM EDT Plan of Treatment Upcoming Encounters Date Type Department Care Team (Late st Contact Info) Description 02/13/2025 1:45 PM EDT / Visits [facility] [address] [place] [phone] Michel Santana, SURGERY NURSE [address] [place] [address] 04/04/2025 1:00 PM EDT / Visits [facility] [address] [place] [phone] Elodia Mcclendon PMHNVipin [address] [place] [address] Health Maintenance Due Date Last Done Comments Anxiety Screening 1974 HPV Screening 1974 Pap + HPV 1974 CT Colonography 12/26/2019 Colonoscopy 12/26/2019 Colorectal Cancer Screening 12/26/2019 FIT/gFOBT 12/26/2019 Fecal DNA 12/26/2019 Flexible Sigmoidoscopy 12/26/2019 Imm-Pneumococcal (2 of 2 - PCV) 12/03/2023 3 Imm-Influenza (#1) 2024 07/16/2023, 1 10/12/2021, 08/29/2021, Additional history exists Imm-Zoster, Recombinant (2 of 2) 2024 02/05/20 23, 12/03/2022 Breast Cancer Screening (Mammogram) 03/02/2025 03/02/2024, 02/27/2023, 01/10/2022 Depression Monitoring 03/16/2025 12/14/2024 , 09/15/2024, 02/15/2024, Additional history exists Lipid Screening 04/08/2025 04/08/2022, 08/12, 07/16/2020, Additional history exists Annual Preventive Care Visit 12/14/202502/2025, 07/16/2023, 03/22/2018 Diabetes Screening 12/14/2025 12/14/2024, 0 12/14/2024, 10/14/2023, Additional history exists Tobacco Screening 12/14/2025 12/14/2024 Cervical Cancer Screening 03/31/2026 Pap Smear 03/31/2026 03/31/2023 ([facility] by Outside Provider), 01/18/2019 (Managed by Outside Provider) Imm-DTaP/Tdap/Td (2 - Td or Tdap) 10/14/2028 019 LARC-Mirena IUD 06/02/2030 06/02/2022 HIV Screening Completed 11/17/2019 Hepatitis C Screening Completed 08/29/2021, 021 Imm-Hepatitis B Completed 02/04/2023, 12/03/2022 Alcohol and Drug Screen Completed 11/18/19 25, 09/15/2024, 02/15/2024, Additional history exists Cervical Ablation/Cold-Knife Conization Discontinued Cervical Cryotherapy Discontinued Colposcopy Discontinued Endometrial Biopsy Discontinued Excision/Leep Discontinued HPV Genotyping Discontinued [id number] Discontinued Vaginal Pap Discontinued Vulvoscopy Discontinued Procedures Procedure Name Priority Date/Time Associated Diagnosis Comments REFERRAL TO ORTHOPEDICS Routine 01/10/2025 3:00 AM EDT Fibroma of right foot FSH AND LH Routine 12/14/2024 9:29 AM EST Perimenopausal COMPREHENSIVE METABOLIC PANEL Routine 12/14/2024 9:29 AM EST Encounter for colorectal cancer screening HGBA1C W/MPG Routine 12/14/2024 9:29 AM EST Routine adult health maintenance OTHER ORDERS SCANNED DOCUMENT 12/14/2024 3:00 AM EST MEDICATIONS SCANNED DOCUMENT 12/13/2024 3:00 AM EST HISTORIC MAMMOGRAM 03/02/2024 3: 00 AM EDT LIPID PANEL Routine 04/08/2022 9:56 AM EDT Hypercholesteremia Xanthelasma of eyelid, unspecified laterality HEPATITIS C AB W/RFLX HCV RNA, QT, RT PCR Routine 08/29/2021 11:48 AM EST from Last 3 Months or Most Recently Relevant to Health Maintenance Results * REFERRAL TO ORTHOPEDICS (01/10/2025 3:00 AM EDT) 01/10/2025 3:00 AM EDT Dylan ZAPATA REFERRAL Final Result * (ABNORMAL) HGBA1C W/MPG (12/14/2024 9:29 AM EST) HEMOGLOBIN A1C 6.0(H) <5.7 % of total Hgb [facility] Comment: For someone without known diabetes, a hemoglobin A1c value between 5.7% and 6.4% is consistent with prediabetes and should be confirmed with a follow-up test. For someone with known diabetes, a value <7% indicates that their diabetes is well controlled. A1c targets should be individualized based on duration of diabetes, age, comorbid conditions, and other considerations. This assay result is consistent with an increased risk of diabetes. Currently, no consensus exists regarding use of hemoglobin A1c for diagnosis of diabetes for children. MEAN PLASMA GLUCOSE 136 mg/dL (calc) [facility] Blood Blood / Unknown 12/14/2024 9 :29 AM EST 12/14/2024 9:29 AM EST Dylan ZAPATA LAB - BLOOD DRAW Final Result [facility] [address] [address], [facility] [address] [place] [address] * FSH AND LH (12/14/2024 9:29 AM EST) FSH 8.4 1.5 - 116.3 mIU/mL [facility] Comment: ?Reference Range ? Follicular Phase ? 2.5-10.2 ? Mid-cycle Peak ? 3.1-17.7 ? Luteal Phase ? 1.5- 9.1 ? Postmenopausal ? 23.0-116.3 ? LH 6.8 0.5 - 76.3 mIU/mL [facility] Comment: ? Reference Range ? Follicular Phase ??1.9-12.5 ? Mid-Cycle Peak ?8.7-76.3 ? Luteal Phase ?0.5-16.9 ? Postmenopausal ?10.0-54.7 Blood Blood / Unknown 12/14/2024 9 :29 AM EST 12/14/2024 9:29 AM EST Dylan ZAPATA LAB - BLOOD DRAW Final Result [facility] [address] [address], [facility] [address] [place] [address] * COMPREHENSIVE METABOLIC PANEL (12/14/2024 9:29 AM EST) GLUCOSE 99 65 - 99 mg/dL [facility] Comment: ?Fasting reference interval UREA NITROGEN (BUN) 19 7 - 25 mg/dL [facility] CREATININE (blood) 0.81 0.50 - 0.99 mg/dL [facility] EGFR 89 > OR = 60 mL/min/1. 73m2 [facility] BUN/CREATININE RATIO SEE NOTE: [facility] Comment: ?? Not Reported: BUN and Creatinine are within ?? reference range. ? SODIUM 138 135 - 146 mmol/L [facility] POTASSIUM 4.4 3.5 - 5.3 mmol/L [facility] CHLORIDE 104 98 - 110 mmol/L [facility] CARBON DIOXIDE 27 20 - 32 mmol/L [facility] CALCIUM 9.0 8.6 - 10.2 mg/dL [facility] PROTEIN, TOTAL 7.4 6.1 - 8.1 g/dL [facility] ALBUMIN 4.4 3.6 - 5.1 g/dL [facility] GLOBULIN 3.0 1.9 - 3.7 g/dL (calc) [facility] ALBUMIN/GLOBULI N RATIO 1.5 1.0 - 2.5 (calc) [facility] BILIRUBIN, TOTAL 0.8 0.2 - 1.2 mg/dL [facility] ALKALINE PHOSPHATASE 62 31 - 125 U/L [facility] AST 18 10 - 35 U/L [facility] ALT 16 6 - 29 U/L [facility] Blood Blood / Unknown 12/14/2024 9 :29 AM EST 12/14/2024 9:29 AM EST us Dylan ZAPATA LAB - BLOOD DRAW Edited Result - Final [facility] [address] [address], [facility] [address] [address] * OTHER ORDERS SCANNED DOCUMENT (12/14/2024 3:00 AM EST) 12/14/2024 3:00 AM EST us Dylan ZAPATA SCAN OTHER ORDERS Final Result * MEDICATIONS SCANNED DOCUMENT (12/13/2024 3:00 AM EST) 12/13/2024 3:00 AM EST us Dylan ZAPATA SCAN MEDS OTHER ORDERS Final R esult * HISTORIC MAMMOGRAM (03/02/2024 3:00 AM EDT) 03/02/2024 3:00 AM EDT us Dylan ZAPATA IMG MAMMO Edited Result - Final * (ABNORMAL) LIPID PANEL (04/08/2022 9:56 AM EDT) CHOLESTEROL, TOTAL 202(H) <200 mg/dL [facility] HDL CHOLESTEROL 51 > OR = 50 mg/dL [facility] TRIGLYCERIDES 80 <150 mg/dL [facility] LDL-CHOLESTEROL 134(H) 99 mg/dL (calc) [facility] Comment: Reference range: <100 Desirable range <100 mg/dL for primary prevention; ?? <70 mg/dL for patients with CHD or diabetic patients with > or = 2 CHD risk factors. LDL-C is now calculated using the Rhona calculation, which is a validated novel method providing better accuracy than the Friedewald equation in the estimation of LDL-C. Gene FREIRE et al. BALDEV. 2013;310(19): 5968-5861 (http://education.[employer]day.[employer]/faq/UGS145) CHOL/HDLC RATIO 4.0 <5.0 (calc) [facility] NON-HDL CHOLESTEROL 151(H) <130 mg/dL (calc) [facility] Comment: For patients with diabetes plus 1 major ASCVD risk factor, treating to a non-HDL-C goal of <100 mg/dL (LDL-C of <70 mg/dL) is considered a therapeutic option. Blood Blood / Unknown 04/08/2022 9 :56 AM EDT 04/08/2022 9:57 AM EDT Dylan ZAPATA LAB - BLOOD DRAW Final Result Performing Organization Address [facility] Co de Phone Number [facility] [address] [address], [facility] [address] [address] * HEPATITIS C AB W/RFLX HCV RNA, QT, RT PCR (08/29/2021 11:48 AM EST) HEPATITIS C ANTIBODY NON-REACT AMBER NON-REACT AMBER [facility] SIGNAL TO CUT-OFF 0.01 <1.00 [facility] Comment: HCV antibody was non-reactive. There is no laboratory evidence of HCV infection. In most cases, no further action is required. However, if recent HCV exposure is suspected, a test for HCV RNA (test code 87967) is suggested. For additional information please refer to http://education.[employer]/faq/HXK48y9 (This link is being provided for informational/ educational purposes only.) 08/29/2021 11:4 8 AM EST 08/29/2021 11:49 AM EST [employer] - BLOOD DRAW Final Resul t Performing Organization Address [facility]/ZIP Co de Phone Number [facility] [address] [address], [employer] [address] [address] from Last 3 Months or Most Recently Relevant to Health Maintenance Insurance [facility] [employer] [address] A[employer] Care Teams Chips Screen Tender Relationship Specialty Start Date End Date Dylan Toribio PA [address] [place] [address] PCP - General Internal Medicine 07/20/18
--- OUTSIDE RECORDS SUMMARY | 2025-01-23 14:06 | XMS_ITS | Clinical Summary ---
Author Organization [facility] Address [address] [place] [address] Phone Care Team Providers Care Cvor Nurse Name Role Phone Madeline Toribio Primary Care Provider Allergies Active Allergy Reactions Criticality Noted Date Comments Penicillins Rash Medium 04/21/2016 Medications gabapentin (NEURONTIN) 600 mg tablet Take 1 tablet (600 mg total) by mouth 3 (three) times a day. 1 Active escitalopram (LEXAPRO) 10 mg tablet Take 1 tablet (10 mg total) by mouth 1 (one) time each day. Active tirzepatide, weight loss, 2.5 mg/0.5 mL solution Inject 2.5 mg under the skin every 7 (seven) days. Active diclofenac (CATAFLAM) 50 mg tablet Take 1 tablet (50 mg total) by mouth 3 (three) times a day. Active propranolol LA (INDERAL LA) 60 mg 24 hr capsule Take 1 capsule (60 mg total) by mouth at bedtime. Do not crush, chew, or split. Active SUMAtriptan (IMITREX) 100 mg tablet Take 1 tablet (100 mg total) by mouth 1 (one) time if needed for migraine. May repeat dose once in 2 hours if no relief. Do not exceed 2 doses in 24 hours. Active rifAMPin (RIFADIN) 300 mg capsule Take 2 capsules (600 mg total) by mouth 3 (three) times a week. Active budesonide-form oteroL (SYMBICORT) 80-4.5 mcg/actuation inhaler Inhale 2 puffs by mouth 2 (two) times a day. Rinse mouth with water after use to reduce aftertaste and incidence of candidiasis. Do not swallow. Active magnesium oxide (MAG-OX) 400 mg magnesium tablet Take 1 tablet (400 mg total) by mouth at bedtime. Active riboflavin (VITAMIN B2) 400 mg tablet Take 1 tablet (400 mg total) by mouth 1 (one) time each day. Active famotidine (PEPCID) 20 mg tablet Take 1 tablet (20 mg total) by mouth 2 (two) times a day. Active levonorgestreL (MIRENA) 21 mcg/24hr (up to 8 yrs) 52 mg IUD 1 Device (1 each total) by intrauterine route 1 (one) time. Active ferrous sulfate 324 mg (65 mg elemental iron) EC tablet Take 1 tablet (324 mg total) by mouth 1 (one) time each day with breakfast. Do not crush, chew, or split. Active calcium carbonate-vitam in D (Calcium 600 + D,3,) 600 mg-10 mcg (400 unit) per tablet Take 1 tablet by mouth 3 (three) times a day. Active glucosamine-cho ndroitin 500-400 mg tablet Take 1 tablet by mouth 3 (three) times a day. Active ethambutoL (MYAMBUTOL) 400 mg tablet Take 6 tablets (2,400 mg total) by mouth 3 (three) times a week. Active Encounters Date Type Department Care Team Description 12/14/2024 Telephone Gastroenterology - [place] 175 [facility] [address] [facility] [address] [place] [address] Mariza Bahena MD Special Procedure from Last 3 Months Surgical History Surgery Date Site/Laterality Comments SECTION PROCEDURE: HISTORICAL TUBAL LIGATION PROCEDURE: HISTORICAL TUBAL LIGATION OTHER SURGICAL HISTORY Left PROCEDURE: TN PRTL THYROID LOBECTOMY UNI W/WO ISTHMUSECTOMY CARPAL TUNNEL RELEASE Right PROCEDURE: HISTORICAL CARPAL TUNNEL REL Medical History Medical History Date Comments History of thyroid cancer 2013 DX:His tory of thyroid cancer Lung nodule DX:Lung nodule; COMMENT: noted 02/2018 History of ovarian cyst DX:Histo ry of ovarian cyst Lumbar herniated disc DX:Lumbar herniated disc Fibromyalgia DX:Fibromyalgia Family History Medical History Relation Name Comments Diabetes Brother Diabetes Father Diabetes Mother Other: muscular dystrophy Mother's side 3 cousins Other: downs syndrome Son Other: muscular dystrophy Son Breast cancer Neg Hx Colon cancer Neg Hx Relation Name Status Comments Brother Alive Father Alive Mother Alive Mother's side 3 cousins Alive Son Alive Social History Tobacco Use Types Packs/Day Years Used Date Smoking Tobacco: Never Smokeless Tobacco: Never Alcohol Use Standard Drinks/Week Comments Yes 0 (1 standard drink = 0.6 oz pur e alcohol) Comments Unknown Sex and Gender Information Value Date Recorded Sex Assigned at Not on file Legal Sex Female 8:16 PM EST Gender Identity Not on file Sexual Orientation Not on file Obstetrics History Last Filed Vital Signs Vital Sign Reading Time Taken Comments Blood Pressure 122/78 04/26/2024 3:06 PM EDT Pulse 69 04/26/2024 3:06 PM EDT Temperature - - Respiratory Rate - - Oxygen Saturation - - Inhaled Oxygen Concentration - - Weight 104 kg (228 lb 9.6 oz) 04/26/2024 3:06 P M EDT Height 167.6 cm (5' 6 ) 04/26/2024 3:06 PM EDT Body Mass Index 36.9 04/26/2024 3:06 PM EDT Plan of Treatment Upcoming Encounters Date Type Department Care Team (Late st Contact Info) Description 02/06/2025 2:00 PM EDT Consult Orthopedic Surgery - [place] 175 [facility] [address] [place] [address] Ely Doyle MD 175 [facility] [address] [place] [phone] 02/14/2025 2:30 PM EDT Appointment [facility] Endoscopy [address] [place] [address] Lex Ryan MD [address] [address] Health Maintenance Due Date Last Done Comments DTaP,Tdap,and Td Vaccines (1 - Tdap) 1993 Hepatitis B Vaccines (1 of 3 - 19+ 3-dose series) 1993 Colorectal Cancer Screening: Colonoscopy 09/13/2022 HIV Screening 09/13/2022 Hepatitis C Screening 09/13/2022 Social Influencers of Health Screening 09/13/2022 Breast Cancer Screening 01/11/2024 01/11/20 22, 12/26/2020, 11/18/2019, Additional history exists COVID-19 Vaccine ( - 2023- season) 2024 Pneumococcal Vaccine: 50+ Years (1 of 1 - PCV) 2024 Zoster Vaccines (1 of 2) 2024 Influenza Vaccine (Season Ended) 2025 Depression Screening 12/14/2025 12/14/2024 Cervical Cancer Screening: Pap Smear 03/23/2026 03/23/2023, 11/03/2018 HIB Vaccines Aged Out No longer eligi ble based on patient's age to complete this topic HPV Vaccines Aged Out No longer eligi ble based on patient's age to complete this topic Hepatitis A Vaccines Aged Out No long er eligible based on patient's age to complete this topic IPV Vaccines Aged Out No longer eligi ble based on patient's age to complete this topic MMR Vaccines Aged Out No longer eligi ble based on patient's age to complete this topic Meningococcal ACWY Vaccine Aged Out N o longer eligible based on patient's age to complete this topic Meningococcal B Vaccine Aged Out No l onger eligible based on patient's age to complete this topic Pneumococcal Vaccine: Pediatrics (0 to 5 Years) and At-Risk Patients (6 to 64 Years) Aged Out No longer eligible based on patient's age to complete this topic RSV Immunization Patients Under 20 months Aged Out No longer eligible based on patient's age to complete this topic Varicella Vaccines Aged Out No longer eligible based on patient's age to complete this topic Procedures Procedure Name Priority Date/Time Associated Diagnosis Comments PAP SMEAR Routine 03/23/2023 JOSETTE SCREENING DIGITAL Routine 01/10/2022 3:20 PM EDT Encounter for screening mammogram for malignant neoplasm of breast from Last 3 Months or Most Recently Relevant to Health Maintenance Results * Pap smear (03/23/2023) 03/23/2023 Narrative HISTORICAL TESTING LAB RESULTING AGENCY - 03/31/2023 11:45 AM EDT [id number] THINPREP PAP: NEGATIVE FOR SQUAMOUS INTRAEPITHELIAL LESION AND MALIGNANCY . SHIFT IN LOS, SUGGESTIVE OF BACTERIAL VAGINOSIS. NOTE: ??THIS PAP TEST COULD NOT BE IMAGED UTILIZING THE IMAGING SYSTEM AND REQUIRED MANUAL REVIEW. AVA DE DIOS(ASCP) (CASE ELECTRONICALLY SIGNED 03 31 2023) RESULT OF APTIMA HIGH RISK HPV ASSAY: HIGH RISK HPV: ??NEGATIVE (SEROTYPES 16,18,31,33,35,39,45,51,52,56,58,59,66,68) COMPLETED ON 2023-03-24 ADEQUACY: SATISFACTORY ENDOCERVICAL/TRANSFORMATION ZONE COMPONENT ABSENT. SOURCE: THINPREP PAP HPV ANY DX: ??REFLEX 16 AND 18, CERVICAL CLINICAL INFORMATION: HPV ANY DIAGNOSIS. HORMONES IUD, PAP HX NEGATIVE, [Z12.4] Ruba Chun DO LAB CYTOLOGY ORDERABLES Final Result HISTORICAL TESTING LAB RESULTING AGENCY * JOSETTE SCREENING DIGITAL (01/10/2022 3:20 PM EDT) Anatomical Region Laterality Modality Mammography 01/10/2022 1:45 PM EDT Narrative 01/10/2022 3:20 PM EDT [facility] Diagnostic Imaging Department [address] [place] [address] Patient: ??SOLITARIO URIAS ?/Age/Sex: 1975 - 46 - F Unit#: ??[id number] ? Location/Status: ??SPDIMAM/REG CLI ? Mnemonic/Ordering Site: ??DIGSC/SPMAM Ordering Physician: ??MADELINE TORIBIO Josette Screening Digital - 01/10/22 - 1423 EXAM: Josette Screening Digital EXAM DATE AND TIME: 01/10/2022 2:24 PM HISTORY: ??Screening. COMPARISON: ??12/26/20, 11/18/19, 11/08/18, 07/22/17 TECHNIQUE: CC and MLO views of both breasts were obtained using full field digital mammography. Bilateral digital breast tomosynthesis was performed in the MLO projection. Computer aided detection with the Ikro 7.2-Viblio was employed. TISSUE DENSITY: b. There are scattered areas of fibroglandular density. FINDINGS: No suspicious masses, grouped microcalcifications, or areas of architectural distortion are seen. The skin and vascularity are unremarkable. IMPRESSION: Stable mammographic appearance of the breasts. ??No evidence of malignancy is seen. A negative mammogram in the presence of a clinically suspicious palpable abnormality does not preclude the possibility of malignancy or alter the indications for biopsy. BI-RADS: ??Category 1: Negative RECOMMENDATION(S): 1: Routine screening mammogram BILATERAL in 1 year. 93382, 35476 3341F, 7025F Dictating Physician: ??LAURA PABLO MD Electronically Signed by: ??LAURA PABLO MD Dic Date/Time: ??01/10/22 1519 Sign date/Time: ??01/10/22 1520 Procedure Note Laura Pablo MD - 10/01/2022 [facility] Diagnostic Imaging Department [address] [place] [address] Patient: SOLITARIO URIAS /Age/Sex: 1975 - 46 -F Unit#: [id number] Location/Status: SPDIMAM/REG CLI Mnemonic/Ordering Site: [facility] Ordering Physician: MADELINE TORIBIO Josette Screening Digital - 01/10/22 - 142 EXAM: Josette Screening Digital EXAM DATE AND TIME: 01/10/2022 2:24 PM HISTORY: Screening. COMPARISON: 12/26/20, 11/18/19, 11/08/18, 07/22/17 TECHNIQUE: CC and MLO views of both breasts were obtained using fullfield digital mammography. Bilateral digital breast tomosynthesis was performedin the MLO projection. Computer aided detection with the Ikro 7.2-TransGamingas employed. TISSUE DENSITY: b. There are scattered areas of fibroglandular density. FINDINGS: No suspicious masses, grouped microcalcifications, or areas ofarchitectural distortion are seen. The skin and vascularity are unremarkable. IMPRESSION: Stable mammographic appearance of the breasts. No evidence of malignancyis seen. A negative mammogram in the presence of a clinically suspicious palpable abnormality does not preclude the possibility of malignancy or alter the indications for biopsy. BI-RADS: Category 1: Negative RECOMMENDATION(S): 1: Routine screening mammogram BILATERAL in 1 year. [address]756, [address]281 3341F, 7025F Dictating Physician: LAURA PABLO MD Electronically Signed by: LAURA PABLO MD Dic Date/Time: 01/10/22 1519 Sign date/Time: 01/10/22 1520 Madeline ZAPATA IMG BI PROCEDURES Final Result from Last 3 Months or Most Recently Relevant to Health Maintenance Insurance MEDICAID - [place] Care Teams Cvor Nurse Relationship Specialty Start Date End Date Madeline Toribio PA [address] [place] [address] PCP - General Physician Metal Milling Machine Operator 09/16/24
--- OUTSIDE RECORDS SUMMARY | 2025-01-23 14:06 | XMS_ITS | Encounter Summary ---
Author Organization [facility] Address [address] [place] [address] Care Team Providers Care Microfiche Duplicator Name Role Phone Dylan Toribio Primary Care Provider [phone] Reason for Visit * Reason Comments Medication Management Encounter Details Date Type Department Care Team ([facility] Contact Info) Description 01/17/2025 3:00 PM EDT / Visits [facility] [address] [place] [phone] Elodia Mcclendon PMHN [address] [place] [address] MDD (major depressive disorder), recurrent episode, moderate (HCC-CMS) (Primary Dx); Insomnia, unspecified type; Major depressive disorder, single episode, mild (PACE-HCC V24) Social History Tobacco Use Types Packs/Day Years [...] AM PST documented as of this encounter Progress Notes * Elodia Hakan, PMHNP - 01/17/2025 3:25 PM EDT The following visit was conducted via Telephone. I educated the patient/guardian on the terms of telehealth and the patient verbally consented to this telemedicine visit. The patient was identified using their Name, and Address. I identified myself as Elodia Mcclendon, Psychiatric Nurse Constantine welsh from [facility], calling from [place], [place]. It was conducted in a private space to protect HIPPA sensitive information. Precautions were taken to provide confidentiality and security and patient was made aware of privacy considerations. The patient/guardian was notified how they can see a clinician in-person in the event of an emergency or if otherwise needed. TIME STARTED: 3:00pm TIME ENDED: 3:30pm Marketing Administrative Assistant used during visit? None, this provider speaks patient's familiar language (Georgian) ASSESSMENT: reports that the medications are therapeutic. No reports of adverse or side effects. Patient currently grieving recent loss of her aunt, also worried about her mother. Some physical pain with ongoing multiple health issues, which is worsening mood. Sleep varies. Patient does not endorse SI/HI/AH/VH. Has an upcoming neurology appointment for her headaches. Feels escitalopram is otherwise effective. Discussion: Discussed use trazodone for sleep, she was in agreement. Objective Note GENERAL APPEARANCE BEHAVIOR AND ATTITUDE: Visit via telehealth. Voice normal tone, inflection, live, volume. No pressured, rapid speech orlatency noted. No lability or constriction noted. Cooperative with interview, engaged in discussionregarding symptoms and medications. MSE: Emotion/Mood Calm and Sad Coping (Observed Emotional State) Calm and Cooperative Speech Clear, coherent and Moderate rate & volume Orientation Oriented to all domains Thought Processes WNL Hallucinations Denies hallucinations Other: Additional comments: Delusions No delusions Assessment and Plan F33.1 MDD (major depressive disorder), recurrent episode, moderate (HCC-CMS) (primary encounter diagnosis) G47.00 Insomnia, unspecified type Plan : TRAZODONE 50 MG TABLET - Take 1/2 to 1 tab by mouth as needed nightly for sleep. F32.0 Major depressive disorder, single episode, mild ([facility] V24) Plan : ESCITALOPRAM 10 MG TABLET - Take 1 Tablet by mouth once daily for 90 days Plan: Continue on medications prescribed. Patient to follow up in 3 months. Encouraged to call [facility] health Department if any concerns arise. Patient acknowledges and verbalize understanding. documented in this encounter Plan of Treatment Upcoming Encounters Date Type Department Care Team (Late st Contact Info) Description 02/13/2025 1:45 PM EDT BH/ Visits [address] [phone] Michel Santana LCSW [address] [place] [address] 04/04/2025 1:00 PM EDT BH/ Visits [address] [phone] Elodia Mcclendon PMHNP [facility] [place] [address] documented as of this encounter Visit Diagnoses Diagnosis MDD (major depressive disorder), recurrent episode, moderate (HCC-CMS)- Primary Major depressive disorder, recurrent episode, moderate Insomnia, unspecified type Major depressive disorder, single episode, mild ([facility] V24) Major depressive disorder, single episode, mild documented in this encounter Additional Health Concerns Assessment Noted Time PHQ-9 Depression Total Score: 15 025 9:02 AM PST documented as of this encounter Care Teams Microfiche Duplicator Relationship Specialty Start Date End Date Dylan Toribio PA [address] [place] [address] PCP - General Internal Medicine 07/20/18 documented as of this encounter
== END 2025-01-23 14:12 | disposition home or self-care (01) ==
LOC: HO.HSMS 12:04
PROVIDERS: PCP Physician Assistant; Visit Provider Nurse Practitioner Family
DX: R20.2 Paresthesia of skin (principal); G43.009 Migraine without aura, not intractable, without status migrainosus; R90.82 White matter disease, unspecified; R06.83 Snoring; H93.13 Tinnitus, bilateral
CPT/HCPCS: 99214

== ENCOUNTER → 2025-01-23 12:03 | Outpatient (BNVA) | payer MEDICAID, SELFPAY | PROVIDERS: PCP Physician Assistant; Visit Provider Nurse Practitioner Family | DX: R20.2 Paresthesia of skin (principal); G43.009 Migraine without aura, not intractable, without status migrainosus; R90.82 White matter disease, unspecified; R06.83 Snoring; H93.13 Tinnitus, bilateral; D64.9 Anemia, unspecified; R73.03 Prediabetes | CPT/HCPCS: 99212 ==

== ENCOUNTER 2025-02-01 10:35 | Outpatient (REF) | payer MEDICAID, SELFPAY ==
--- OUTSIDE RECORDS SUMMARY | 2025-02-01 12:33 | XMS_ITS | Clinical Summary ---
Author Organization [facility] Address [address] [place] [address] Care Team Providers Care Mechanics Supervisor Name Role Phone Dylan Toribio Primary Care Provider [phone] Source Comments PLEASE NOTE, if this patient [...] tabletIndications: Major depressive disorder, single episode, mild (PACE-HCC V24) Take 1 Tablet by mouth once daily for 90 days 90 Tablet 01/18/20 25 025 Active escitalopram (LEXAPRO) 10 mg tabletIndications: Major depressive disorder, single episode, mild (PACE-HCC V24) Take 1 Tablet by mouth once [...] to physiatry for injections? - Most recent [facility] pulmonology report needed for Lung Nodule finding, last eval on record was before January's office visit. Problem Noted Date Diagnosed Date Severe obesity ([facility]) 10/19/2023 Pain in both hands 09/29/2023 H/O left wrist surgery 09/29/2023 Intractable persistent migra ine aura without cerebral infarction and with status migrainosus 09/29/2023 Financial difficulties 07/16/2023 Housing problems 07/16/2023 Obstructive sleep apnea 11/26/2022 Class 1 obesity 08/12/2022 Vertigo 07/06/2022 Constipation, chronic 06/02/2022 Fibromyalgia 09/14/2019 Protrusion of lumbar intervertebral disc 019 Overview (08/15/2019): 08/03/19, MR lumbar Spine [...] nodule 07/26/2019 Overview (07/26/2019): Office Visit 07/26/18, zay for f/u on thyroid pathology and lung [...] from Pulmonology. Not sure if patient attended? [facility] - 42-year-old nonsmoker female who was noted to have [address] of chest done about 2-[address] of chest was done at [facility] in [place], [place]. She was living in [place] at that time. She thinks she may [...] ratio was 87. CT chest done at [facility] 2-3 years ago is not available for my review at this time. IMPRESSION: Subcentimeter lung nodules [address] chest report as well as images are not available for my review at this time. PLAN: 1. Obtain prior CT chest images and result from [facility]. I will have my office request this. 2. Noncontrast CT chest for followup of her lung nodules. 3. Return for follow up after this noncontrast CT chest. DDD (degenerative disc disease), lumbar 07/26/20 Overview (07/26/2019): 03/29/19, [facility] Report: XR 2 View L-Spine revealed DDD at lumbar. Referral to physiatry for injection management recommended. F/u to be arranged once complete. S/P partial thyroidectomy 07/26/2019 Overview (07/26/2019): 10/07/18, [facility] Progress note, H/o partial thyroidectomy in 2013 - biopsy +ve/suspicious. Surgery with Dr. Iverson at [facility]. Grade III Ptosis of breast 07/26/2019 Overview (07/26/2019): 06/24/19, [facility] Plastic Surgery Note, Enrique Samson MD: no [...] anemia 04/26/2018 Headache 02/12/2018 Overview (01/07/2023): 02/12/2018 [facility] Spine Lumbar W Obliq min 4v Normal examination of the lumbosacral spine. There is evidence of constipation. Prediabetes 02/12/2018 Encounters Date Type Department Care Team Description 01/20/2025 9:30 AM EDT BH/MH Visits [address] [phone] Michel Santana LCSW Major depressive disorder, single episode, mild (PACE-HCC V24) (Primary Dx) 01/17/2025 3:00 PM EDT BH/MH Visits [facility] [address] [place] [phone] Elodia Mcclendon PMHNP MDD (major depressive disorder), recurrent episode, moderate (HCC-CMS) (Primary Dx); Insomnia, unspecified type; Major depressive disorder, single episode, mild (PACE-HCC V24) 01/09/2025 Interim Notes [facility] [address] [place] [address] Dylan Toribio PA Fibromyalgia (Primary Dx) 12/30/2024 8:45 AM EDT /MH Visits [address] [phone] Michel Santana LCSW Major depressive disorder, single episode, mild (HCC-CMS) (Primary Dx) 12/29/2024 3:20 PM EDT Office Visit [facility] [address] [place] [address] Dylan Toribio PA Fibromyalgia; Class 1 obesity; Obstructive sleep apnea; Other migraine without status migrainosus, not intractable; Prediabetes; Elevated blood pressure reading 12/16/2024 11:00 AM EST BH/MH Visits [address] [phone] Michel Santana LCSW Major depressive disorder, single episode, mild (HCC-CMS) (Primary Dx) 12/14/2024 9:20 AM EST Office Visit [facility] [address] [place] [phone] Dylan Toribio PA Routine adult health maintenance (Primary Dx); Degeneration of intervertebral disc of lumbar region with discogenic back pain; Fibromyalgia; Class 1 obesity; Obstructive sleep apnea; Other migraine without status migrainosus, not intractable; Encounter for colorectal cancer screening; Perimenopausal; Prediabetes; Elevated blood pressure reading; Major depressive disorder, single episode, mild (HCC-CMS) 12/13/2024 Interim Notes [address] [phone] Anna Li [place] 11/18/2024 11:00 AM EST Office Visit [facility] [address] [place] [phone] Dylan Toribio PA Nonintractable episodic headache, unspecified headache type (Primary Dx); Neck pain; Ear fullness, left; Prediabetes; Class 1 obesity; Obstructive sleep apnea; Elevated blood pressure reading 11/17/2024 10:15 AM EST / Visits [facility] [address] [place] [phone] Michel Santana LCSW Major depressive disorder, single episode, mild (HCC-CMS) (Primary Dx) 11/09/2024 Interim Notes [address] [phone] Magaly May 11/04/2024 9:00 AM EST Office Visit [address] [phone] Jose Eduardo Christine PA-C Left otitis media, unspecified otitis media type (Primary Dx) from Last 3 Months Immunizations Immunization Administration [...] Description 02/13/2025 1:45 PM EDT / Visits [facility] [address] [place] [address] Michel Santana, HOME HEALTH CARE PHYSICIAN [address] [place] [address] 04/04/2025 1:00 PM EDT BH/ Visits [facility] [address] [place] [phone] Elodia Mcclendon, PMHNP [address] [place] [address] Health Maintenance Due Date Last Done Comments [...] Biopsy Discontinued Excision/Leep Discontinued HPV Genotyping Discontinued [id number] Discontinued Vaginal Pap Discontinued Vulvoscopy Discontinued Procedures Procedure Name Priority Date/Time Associated Diagnosis Comments REFERRAL SCANNED DOCUMENT 01/23/2025 3:00 AM EDT REFERRAL TO ORTHOPEDICS Routine 01/10/2025 3:00 AM [...] Relevant to Health Maintenance Results * REFERRAL SCANNED DOCUMENT (01/23/2025 3:00 AM EDT) 01/23/2025 3:00 AM EDT us Dylan ZAPATA SCAN REFERRAL Final Result * REFERRAL TO ORTHOPEDICS (01/10/2025 3:00 AM EDT) 01/10/2025 3:00 AM EDT us Dylan ZAPATA REFERRAL Final Result * (ABNORMAL) HGBA1C W/MPG (12/14/2024 9:29 AM EST) HEMOGLOBIN A1C 6.0(H) <5.7 % of total Hgb [facility] Comment: For someone without known diabetes, a [...] children. MEAN PLASMA GLUCOSE 136 mg/dL (calc) [facility] Blood Blood / Unknown 12/14/2024 9 :29 AM EST 12/14/2024 9:29 AM EST us Dylan ZAPATA LAB - BLOOD DRAW Final Result [facility] [address] [place] [address], [facility] [address] [place] [phone] * FSH AND LH (12/14/2024 9:29 AM EST) FSH 8.4 1.5 - 116.3 mIU/mL [facility] Comment: ?Reference Range ? Follicular Phase ? 2.5-10.2 ? Mid-cycle Peak ? 3.1-17.7 ? Luteal Phase ? 1.5- 9.1 ? Postmenopausal ? 23.0-116.3 ? LH 6.8 0.5 - 76.3 mIU/mL [facility] Comment: ? Reference Range ? Follicular Phase ??1.9-12.5 ? Mid-Cycle Peak ?8.7-76.3 ? Luteal Phase ?0.5-16.9 ? Postmenopausal ?10.0-54.7 Blood Blood / Unknown 12/14/2024 9 :29 AM EST 12/14/2024 9:29 AM EST Dylan ZAPATA LAB - BLOOD DRAW Final Result Performing Organization Address City/State/[facility] Co de Phone Number [facility] [address] [place] [address], [facility] [address] [place] [address] * COMPREHENSIVE METABOLIC PANEL (12/14/2024 9:29 AM EST) GLUCOSE 99 65 - 99 mg/dL [facility] Comment: ?Fasting reference interval UREA NITROGEN (BUN) 19 7 - 25 mg/dL [facility] CREATININE (blood) 0.81 0.50 - 0.99 mg/dL [facility] EGFR 89 > OR = 60 mL/min/1. 73m2 [facility] BUN/CREATININE RATIO SEE NOTE: 6 - 22 [facility] Comment: ?? Not Reported: BUN and Creatinine are within ?? reference range. ? SODIUM 138 135 - 146 mmol/L [facility] POTASSIUM 4.4 3.5 - 5.3 mmol/L [facility] CHLORIDE 104 98 - 110 mmol/L [facility] CARBON DIOXIDE 27 20 - 32 mmol/L [facility] CALCIUM 9.0 8.6 - 10.2 mg/dL [facility] PROTEIN, TOTAL 7.4 6.1 - 8.1 g/dL [facility] ALBUMIN 4.4 3.6 - 5.1 g/dL [facility] GLOBULIN 3.0 1.9 - 3.7 g/dL (calc) [facility] ALBUMIN/GLOBULI N RATIO 1.5 1.0 - 2.5 (calc) [facility] BILIRUBIN, TOTAL 0.8 0.2 - 1.2 mg/dL [facility] ALKALINE PHOSPHATASE 62 31 - 125 U/L [facility] AST 18 10 - 35 U/L [facility] ALT 16 6 - 29 U/L [facility] Blood Blood / Unknown 12/14/2024 9 :29 AM EST 12/14/2024 9:29 AM EST us Dylan ZAPATA LAB - BLOOD DRAW Edited Result - Final [facility] [address] [address], [facility] [address] [address] * OTHER ORDERS SCANNED DOCUMENT (12/14/2024 3:00 [...] AM EDT) CHOLESTEROL, TOTAL 202(H) <200 mg/dL [facility] HDL CHOLESTEROL 51 > OR = 50 mg/dL [facility] TRIGLYCERIDES 80 <150 mg/dL [facility] [facility] LDL-CHOLESTEROL 134(H) 99 mg/dL (calc) [facility] [place] [facility] Comment: Reference range: <100 Desirable range <100 mg/dL for primary prevention; ?? <70 mg/dL for patients with CHD or diabetic patients with > or = 2 CHD risk factors. LDL-C is now calculated using the Gene-Colbert calculation, which is a validated novel method providing better accuracy than the Friedewald equation in the estimation of LDL-C. Gene SS et al. BALDEV. 2013;310(19): 9213-6922 (http://education.Mapittrackit/faq/FFJ463) CHOL/HDLC RATIO 4.0 <5.0 (calc) [facility] NON-HDL CHOLESTEROL 151(H) <130 mg/dL (calc) [facility] Comment: For patients with diabetes plus 1 major ASCVD risk factor, treating to a non-HDL-C goal of <100 mg/dL (LDL-C of <70 mg/dL) is considered a therapeutic option. Blood Blood / Unknown 04/08/2022 9 :56 AM EDT 04/08/2022 9:57 AM EDT us Dylan ZAPATA LAB - BLOOD DRAW Final Result [facility] [address] [address], [facility] [address] [address] * HEPATITIS C AB W/RFLX HCV RNA, QT, RT PCR (08/29/2021 11:48 AM EST) HEPATITIS C ANTIBODY NON-REACT AMBER NON-REACT AMBER [facility] SIGNAL TO CUT-OFF 0.01 <1.00 [facility] Comment: HCV antibody was non-reactive. There is no laboratory evidence of HCV infection. In most cases, no further action is required. However, if recent HCV exposure is suspected, a test for HCV RNA (test code 38751) is suggested. For additional information please refer to http://education.PiperScout/faq/SMC43t3 (This link is being provided for informational/ educational purposes only.) 08/29/2021 11:4 8 AM EST 08/29/2021 11:49 AM EST [facility] - BLOOD DRAW Final Resul t [facility] [address] [address], [facility] [address] [address] from Last 3 Months or Most Recently Relevant to Health Maintenance Insurance [facility] [address] [employer] Care Teams Mechanics Supervisor Relationship Specialty Start Date End Date Dylan Toribio PA [address] [place] [address] PCP - General Internal Medicine 07/20/18
--- OUTSIDE RECORDS SUMMARY | 2025-02-01 12:33 | XMS_ITS | Clinical Summary ---
Author Organization [facility] Address [address] [place] [address] Phone Care Team Providers Care Box Feeder Name Role Phone Madeline Toribio Primary Care Provider [phone] Allergies Active Allergy Reactions Criticality Noted Date [...] mouth 3 (three) times a week. Active polyethylene glycol (Golytely) 236-22.74-6.74 -5.86 gram solution Take 4L by mouth once for one dose. May substitue any PEG. Starting at 6PM the night before your procedure drink 1 8oz glasses at your own pace until you complete half of the gallon. Finish 2nd half of the gallon 5 hours before your procedure. 4000 mL 5 Active bisacodyL (DULCOLAX) 5 mg EC tablet Take 2 tablets by mouth right before beginning bowel prep. See instructions provided by the office 2 tablet 5 Active Encounters Date Type Department Care Team Description 12/14/2024 Telephone Gastroenterology - [place] 175 [facility] 175 [facility] [address] [place] [address] Mariza Bahena MD Special Procedure from Last 3 Months Surgical History Surgery Date Site/Laterality Comments SECTION PROCEDURE: HISTORICAL TUBAL LIGATION PROCEDURE: HISTORICAL TUBAL LIGATION OTHER SURGICAL HISTORY Left PROCEDURE: DE PRTL THYROID LOBECTOMY UNI W/WO ISTHMUSECTOMY CARPAL [...] kg (228 lb 9.6 oz) 04/26/2024 3:06 PM EDT Height 167.6 cm (5' 6 ) 04/26/2024 3:06 PM EDT Body Mass Index 36.9 04/26/2024 3:06 PM EDT Plan of Treatment Upcoming Encounters Date Type Department Care Team (Late st Contact Info) Description 02/06/2025 2:00 PM EDT Consult Orthopedic Surgery - [place] [address] [phone] Ely Doyle MD [address] [phone] 02/14/2025 2:30 PM EDT Appointment [facility] Endoscopy [address] [place] [address] Lex Ryan MD [address] [address] Health Maintenance Due Date Last Done Comments DTaP,Tdap,and Td Vaccines (1 - Tdap) 1993 Hepatitis B Vaccines (1 of 3 - 19+ 3-dose series) 1993 Colorectal Cancer Screening: Colonoscopy 09/13/2022 HIV Screening 09/13/2022 Hepatitis C Screening 09/13/2022 Social Influencers of Health Screening 09/13/2022 Breast Cancer Screening 01/11/2024 01/11/20, 12/26/2020, 11/18/2019, Additional history exists COVID-19 Vaccine ( - season) 2024 Pneumococcal Vaccine: 50+ Years (1 [...] Associated Diagnosis Comments PAP SMEAR Routine 03/23/2023 [facility] SCREENING DIGITAL Routine 01/10/2022 3:20 PM EDT Encounter for screening mammogram for malignant neoplasm of breast from Last 3 Months or Most Recently Relevant to Health Maintenance Results * Pap smear (03/23/2023) 03/23/2023 Narrative HISTORICAL TESTING LAB RESULTING AGENCY - 03/31/2023 11:45 AM EDT [id number] THINPREP PAP: NEGATIVE FOR SQUAMOUS INTRAEPITHELIAL LESION [...] DIAGNOSIS. HORMONES IUD, PAP HX NEGATIVE, [Z12.4] us Ruba Chun DO LAB CYTOLOGY ORDERABLES Final Result HISTORICAL TESTING LAB RESULTING AGENCY * [facility] SCREENING DIGITAL (01/10/2022 3:20 PM EDT) Anatomical Region Laterality Modality Mammography 01/10/2022 1:45 PM EDT Narrative 01/10/2022 3:20 PM EDT [facility] Diagnostic Imaging Department [address] [place], [place] [phone] Patient: ??SOLITARIO URIAS ?/Age/Sex: 1975 - 46 - F Unit#: ??[id number] ? Location/Status: ??SPDIMAM/REG CLI ? Mnemonic/Ordering Site: ??DIGSC/SPMAM Ordering Physician: ??MADELINE TORIBIO Josette Screening Digital - 01/10/22 - 1423 EXAM: [facility] Screening Digital EXAM DATE AND TIME: 01/10/2022 2:24 PM HISTORY: ??Screening. COMPARISON: ??12/26/20, 11/18/19, 11/08/18, 07/22/17 TECHNIQUE: CC and MLO views of both breasts were obtained using full field digital mammography. Bilateral digital breast tomosynthesis was performed in the MLO projection. Computer aided detection with the [employer] 7.2-H was employed. TISSUE DENSITY: b. There are [...] Routine screening mammogram BILATERAL in 1 year. [address]67, 72772 3341F, 7029F Dictating Physician: ??LAURA PABLO MD Electronically Signed by: ??LAURA PABLO MD Dic Date/Time: ??01/10/22 1519 Sign date/Time: ??01/10/22 1520 Procedure Note Laura Pablo MD - 10/01/2022 [facility] Diagnostic Imaging Department [address] [place] [address] Patient: BENNIE JIMSOLITARIOO.B./Age/Sex: 1975 - 46 -F Unit#: [id number] Location/Status: [facility] CLI Mnemonic/Ordering Site: [facility] Ordering Physician: MADELINE TORIBIO [facility] Screening Digital - 01/10/22 - 1423 EXAM: [facility] Screening Digital EXAM DATE AND TIME: 01/10/2022 2:24 PM HISTORY: Screening. COMPARISON: 12/26/20, 11/18/19, 11/08/18, 07/22/17 TECHNIQUE: CC and MLO views of both breasts were obtained using fullfield digital mammography. Bilateral digital breast tomosynthesis was performedin the MLO projection. Computer aided detection with the [employer] 7.2-Hwas employed. TISSUE DENSITY: b. There are scattered [...] Routine screening mammogram BILATERAL in 1 year. [address]14, [address]266 3341F, 7025F Dictating Physician: LAURA PABLO MD Electronically Signed by: LAURA PABLO MD Dic Date/Time: 01/10/22 1519 Sign date/Time: 01/10/22 1520 Madeline ZAPATA IM BI PROCEDURES Final Result from Last 3 Months or Most Recently Relevant to Health Maintenance Insurance MEDICAID - [place] Care Teams Box Feeder Relationship Specialty Start Date End Date Madeline Toribio PA [address] [place] [address] PCP - General Physician Winding Department Supervisor 09/16/24
--- OUTSIDE RECORDS SUMMARY | 2025-02-01 12:33 | XMS_ITS | Clinical Summary ---
Author Organization [facility] Address [address] [place] [address] Care Team Providers Care Instrument Maker And Repairer Name Role Phone Miranda Bautista MD Primary [...] Advance Directives For more information, please contact: [phone] Latest Code Status on File Code Status Date Activated Date Inactivated Comments Full Code 08/29/2016 7:11 AM 08/29/2016 4:46 PM Thi s code status was ascertained in the following way: discussion with patient. Care Teams Instrument Maker And Repairer Relationship Specialty Start Date End Date Miranda Bautista MD [address] [place] [address] PCP - General Internal Medicine 04/30/16
[2025-02-01 17:53] LABS: MANUAL DIFF FLAG NO
[2025-02-01 18:00] LABS: Basophils Percent Auto 0.8 % (0-2); Eosinophils Absolute Auto 0.1 X10*3/uL (0.0-0.4); Eosinophils Percent Auto 1.5 % (0-4); Hematocrit 39.3 % (37.0-47.0); Imm Gran Abs Auto 0.01 X10*3/uL (0.00-0.03); Imm Gran Pct Auto 0.2 % (0.0-0.4); Lymphocytes Absolute Auto 1.2 X10*3/uL (1.2-4.9); Mean Corpuscular HGB Conc 33.1 g/dl (31.0-35.0); Mean Corpuscular Hemoglobin 29.4 pg (27.0-33.0); Mean Corpuscular Volume 88.9 fL (80.0-98.0); Mean Platelet Volume 11.5 fL (9.4-12.3); Monocytes Absolute Auto 0.6 X10*3/uL (0.1-1.2); Monocytes Percent Auto 11.8 % (2-11); Neutrophils Absolute Auto 3.2 x10*3/uL (2.0-8.3); Neutrophils Percent Auto 61.7 % (45-73); Platelet Count 236 X10*3/uL (160-400); Red Blood Count 4.42 X10*6/uL (4.20-5.50); Red Cell Distribution Width 13.6 % (11.0-16.0); White Blood Count 5.2 X10*3/uL (4.8-10.8)
[2025-02-01 18:10] LABS: Estimated Average Glucose 108 mg/dL; Hemoglobin A1C 119.8199 umol/L; Hemoglobin A1c % 5.4 % (<6.0)
[2025-02-01 18:18] LABS: Alanine Aminotransferase 18 U/L (0-31); Albumin Level 4.1 g/dL (3.5-5.0); Alkaline Phosphatase 62 U/L (39-117); Anion Gap 12 (12-20); Aspartate Amino Transferase 35 U/L (5-31); Bilirubin Total 0.7 mg/dL (0.0-1.0); Blood Urea Nitrogen 21 mg/dL (9-16); Calcium 9.2 mg/dL (8.4-10.2); Carbon Dioxide 23 mmol/L (22-29); Chloride 108 mmol/L (96-108); Estimated Glomerular Filt Rate > 60; Glucose Random 86 mg/dL (60-115); Iron 63 mcg/dL (30-160); Percent Iron Saturation 25 % (15-50); Potassium 3.9 mmol/L (3.3-5.1); Sodium 139 mmol/L (135-145); Total Iron Binding Capacity 249 mcg/dL (228-428); Total Protein 7.4 g/dL (6.5-8.0); Unsaturated Iron Binding 186 ug/dL
[2025-02-01 18:34] LABS: Ferritin 62 ng/mL (10-250); TSH reflex Free T4 1.62 uIU/mL (0.32-4.0)
[2025-02-01 18:50] LABS: Folate 6.8 ng/mL (> or = 4.0); Vitamin B12 510 pg/mL (200-900)
[2025-02-04 14:53] LABS: Methylmalonic Acid 126 nmol/L (55-335)
[2025-02-05 14:14] LABS: Vitamin D 25-OH, D2 <4 ng/mL; Vitamin D 25-OH, D3 17 ng/mL; Vitamin D 25-OH, Total 17 ng/mL (30-100)
[2025-02-05 15:59] LABS: Vitamin B6 8.3 ng/mL (2.1-21.7)
[2025-02-09 18:02] LABS: Vitamin B1 8 nmol/L (8-30)
== END 2025-02-01 10:36 | disposition home or self-care (01) ==
LOC: HO.HKASLDS 10:35
PROVIDERS: Visit Provider Nurse Practitioner Family
DX: D64.9 Anemia, unspecified (principal); R73.03 Prediabetes; R20.2 Paresthesia of skin
CPT/HCPCS: 36415; 80053; 82306; 82607; 82728; 82746; 83036; 83540; 83921; 84207; 84425; 84443; 85025

== ENCOUNTER 2025-04-07 13:36 | Outpatient (REF) | payer MEDICAID, SELFPAY ==
--- NOTE | 2025-04-07 13:39 | EMG_ITS ---
Chief complaint: Left wrist pain Reason for referral: Evaluate for Carpal Tunnel Syndrome Referred by: Anahy Adamson NP Procedure done: Left upper extremity NCS/EMG Precautions and/or limitations: None The limb temperature was monitored continuously and remained between 32-36 degrees C during the performance of the NCS. Nerve Conduction Studies Anti Sensory Summary Table ?Stim Site NR Onset (ms) Norm Onset (ms) Peak (ms) Norm Peak (ms) O-P Amp (?V) Norm O-P Amp Site1 Site2 Delta-0 (ms) Dist (cm) Luis Antonio (m/s) Norm Luis Antonio (m/s) Left Median Anti Sensory (2nd Digit) Wrist ? 2.4 3.1 <3.6 56.6 >10 Wrist 2nd Digit 2.4 14.0 58 Left Ulnar Anti Sensory (5th Digit) Wrist ? 2.1 2.8 <3.7 44.1 >15.0 Wrist 5th Digit 2.1 14.0 67 Motor Summary Table ?Stim Site NR Onset (ms) Norm Onset (ms) O-P Amp (mV) Norm O-P Amp iAmp (mV) Amp (1st) (%) Site1 Site2 Delta-0 (ms) Dist (cm) Luis Antonio (m/s) Norm Luis Antonio (m/s) Left Median Motor (Abd Poll Brev) Wrist ? 3.4 <3.9 11.9 >4.5 13.6 100.0 Elbow Wrist 3.0 19.0 63 >45 Elbow ? 6.4 10.9 12.2 91.6 Left Ulnar Motor (Abd Dig Minimi) Wrist ? 2.5 <3.0 6.2 >5 8.5 100.0 B Elbow Wrist 3.0 18.5 62 >45 B Elbow ? 5.5 6.2 8.5 100.0 A Elbow B Elbow 1.3 10.0 77 >45 A Elbow ? 6.8 6.8 9.1 109.7 Comparison Summary Table ?Stim Site NR Peak (ms) Norm Peak (ms) P-T Amp (?V) Site1 Site2 Delta-P (ms) Norm Delta (ms) Left Median/Radial Dig I Comparison (Digit 1 - 10cm) Median ? 2.5 <2.9 80.1 Median Radial 0.1 Radial ? 2.6 <2.8 62.6 EMG ?Side Muscle Nerve Root Ins Act Fibs Psw Amp Dur Poly Recrt Int Pat Comment Left 1stDorInt Ulnar C8-T1 Nml Nml Nml Nml Nml 0 Nml Complete Left FlexCarRad Median C6-7 Nml Nml Nml Nml Nml 0 Nml Complete Left Biceps Musculocut C5-6 Nml Nml Nml Nml Nml 0 Nml Complete Left Triceps Radial C6-7-8 Nml Nml Nml Nml Nml 0 Nml Complete Left Deltoid Axillary C5-6 Nml Nml Nml Nml Nml 0 Nml Complete FINDINGS: All motor and sensory nerves tested showed normal latencies, amplitudes and conduction velocities. Concentric needle EMG was performed in selected muscles of the left upper extremity. Study did not reveal signs of electric abnormalities as shown in the table above. IMPRESSION: 1. This is a normal study. 2. There is no electrodiagnostic evidence for median neuropathy, ulnar neuropathy, brachial plexopathy, or cervical radiculopathy. Thank you for your kind referral. Gin Cuellar MD, HEMALATHA Board Certified, [place] Board of Physical Medicine and Rehabilitation (ABPMR) Board Certified, [place] Board of Electrodiagnostic Medicine (ABEM) CODIN [address] MTDD
[2025-04-07 15:39] LABS: Folate 6.2 ng/mL (> or = 4.0)
[2025-04-10 15:44] LABS: Homocysteine 12.9 umol/L (< or = 13.4)
== END 2025-04-07 13:37 | disposition home or self-care (01) ==
LOC: HO.NEURO 13:36
PROVIDERS: PCP Physician Assistant; Visit Provider Nurse Practitioner Family
DX: R20.2 Paresthesia of skin (principal); M79.632 Pain in left forearm; Z98.890 Other specified postprocedural states; D64.9 Anemia, unspecified; R73.03 Prediabetes
CPT/HCPCS: 36415; 82746; 83090; 95886; 95909

== ENCOUNTER → 2025-04-07 13:39 | Outpatient (BNV) | payer MEDICAID, SELFPAY | PROVIDERS: PCP Physician Assistant; Visit Provider Physical Medicine & Rehabilitation | DX: M25.532 Pain in left wrist (principal) | CPT/HCPCS: 95886; 95909 ==

== ENCOUNTER 2025-08-01 11:05 | Outpatient (AMB) | payer MEDICAID, SELFPAY ==
[2025-08-01 11:18] VITALS: BP 110/80; PULSE 84; O2SAT 98; BMI 31.8
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
--- OUTSIDE RECORDS SUMMARY | 2025-08-01 14:07 | XMS_ITS | Clinical Summary ---
Author Organization [facility] Address [address] [place] [address] Care Team Providers Care Sole Cutter Name Role Phone Unavailable Primary Care Provider Unavailabl e Encounters Date Type Department Care Team Description 05/02/2025 Population Health Risk Score [facility] ([facility]) Department [address] [id number] Provider, Population Health Generic from Last 3 Months Social History Tobacco Use Types Packs/Day Years Used Date Smoking Tobacco: Never Assessed Comments Unknown Sex and Gender Information Value Date Recorded Sex Assigned at Not on file Legal Sex Female 9:29 PM EDT Gender Identity Not on file Sexual Orientation Not on file Plan of Treatment Health Maintenance Due Date Last Done Comments CT Colonography 1974 Colonoscopy 1974 Colorectal Cancer Screening 1974 Depression Screening 1974 FIT DNA/Cologuard 1974 FIT 1974 FOBT 1974 HIV Screening 1974 Lipid Panel 1974 SDOH Screening 1974 Sigmoidoscopy 1974 Disability Screening 1974 Alcohol/Substance Use Screening 1986 Tobacco Screening 1986 Family Planning (PISQ) 1989 Hepatitis C Screening 1992 Pap Smear 12/26/1995 Cervical Cancer Screening 2004 HPV/Cotest 2004 Mammogram 2014 Zoster Vaccines (2 of 2) 2024 02/04/2023, 11/13 COVID-19 Vaccine ( - season) 2025 Influenza Vaccine (#1) 2025 , 08/12/2022, 08/29/2021, Additional history exists DTaP/Tdap/Td Vaccines (2 - Td or Tdap) 10/14/2028 10/14/2018 RSV Patients and Patients Aged 60 years or older (1 - 1-dose 75+ series) 2049 Hepatitis B Vaccines Completed 02/04/2023, 12/03/19 23 Pneumococcal Vaccine: 50+ Years Completed 03/22/2025, 12/03/2022 HIB Vaccines Aged Out No longer eligi [...] patient's age to complete this topic Meningococcal Vaccine Aged Out No ibrahima farrah eligible based on patient's age to complete this topic RSV under 20 months Aged Out No longe r eligible based on patient's age to complete this topic Rotavirus Vaccines Aged Out No longer eligible based on patient's age to complete this topic
--- OUTSIDE RECORDS SUMMARY | 2025-08-01 14:09 | XMS_ITS | Clinical Summary ---
Author Organization [facility] Address [address] [place] [address] Care Team Providers Care Transplant Immunologist Name Role Phone Miranda Bautista MD Primary [...] 60 08/29/2016 10:14 AM EST Temperature 36.1 C (96.9 F) 08/29/2016 9:17 AM EST Respiratory Rate 17 08/29/2016 10:00 AM EST [...] Smear) 12/26/1995 Colon Cancer Screening (Colonoscopy) 12/26/2019 Breast Cancer Screening (Mammogram) 2024 Shingrix-Zoster Vaccine (1 of 2) 2024 Influenza Vaccine (#1) 2025 Pneumococcal Vaccine Aged Out No long er eligible based on patient's age to complete this topic RSV Ped < 20 months Aged Out No longe r eligible based on patient's age to complete this topic Advance Directives For more information, please contact: [phone] Latest Code Status on File Code Status Date Activated Date Inactivated Comments Full Code 08/29/2016 7:11 AM 08/29/2016 4:46 PM Thi s code status was ascertained in the following way: discussion with patient. Care Teams Transplant Immunologist Relationship Specialty Start Date End Date Miranda Bautista MD [address] [place] [address] PCP - General Internal Medicine 04/30/16
--- OUTSIDE RECORDS SUMMARY | 2025-08-01 14:10 | XMS_ITS | Clinical Summary ---
Author Organization [facility] Address [address] [place] [address] Care Team Providers Care Parts Clerk Plant Maintenance Name Role Phone Dylan Toribio Primary Care Provider [phone] Source Comments PLEASE NOTE, if this patient is a minor, it may be UNLAWFUL to discuss sensitive information that is contained in these records (such as FAMILY PLANNING, MENTAL HEALTH or SUBSTANCE ABUSE) with the minor patient's parent or other person without the patient's specific authorization.CHINTAN Allergies Active Allergy Reactions Criticality Noted Date Comments Amoxicillin 11/18/2024 Medications calcium carbonate-vitamin D3 600 mg(1,500mg) -400 unit [...] 3 TIMES EVERY WEEK 01/18/20 24 Active SUMAtriptan succinate (IMITREX) 100 mg tabletIndications: [...] mg) 2 mL 1 12/15/19 25 Active tirzepatide, weight loss, (ZEPBOUND) 7.5 mg/0.5 mL pnijIndications:Se anthony obesity,Obstructiv e sleep apnea,Class 1 obesity,Prediabete s Inject 7.5 mg into the skin once a week. 2 mL 2 03/20/20 25 Active tirzepatide, weight loss, (ZEPBOUND) 7.5 mg/0.5 mL pnijIndications:Pr ediabetes Inject 7.5 mg into the skin once a week. 2 mL 1 03/22/20 25 Active tirzepatide, weight loss, (ZEPBOUND) 5 mg/0.5 mL pnijIndications:Pr ediabetes,Class 1 obesity,Obesity (BMI 35.0-39.9 without comorbidity) Inject 5 mg into the skin once a week. 2 mL 2 05/23/20 25 Active gabapentin (NEURONTIN) 600 mg tabletIndications: Fibromyalgia,Predi abetes Take 1 Tablet by mouth 3 (three) times daily NEEDED FOR FIBROMYALGIA PAIN!!. 270 Tablet 1 05/30/20 25 Active methocarbamoL (ROBAXIN) 750 mg tabletIndications: Neck pain Take 1 Tablet by mouth 3 (three) times daily. 30 Tablet 06/15/20 25 Active diclofenac sodium (VOLTAREN) [address] tabletIndications: Neck pain Take 1 Tablet by mouth 2 (two) times daily. 60 Tablet 2 06/15/20 25 Active traZODone (DESYREL) 50 mg tabletIndications: Insomnia, unspecified type Take 1 tablet as needed for sleep. May repeat in one hour if ineffective.. 60 Tablet 2 07/17/20 25 Active escitalopram (LEXAPRO) 20 mg tabletIndications: MDD (major depressive disorder), recurrent episode, moderate Take 1 Tablet by mouth once daily for 90 days. 30 Tablet 2 07/17/20 25 026 Active tirzepatide, weight loss, (ZEPBOUND) 2.5 mg/0.5 mL soln 2.5 Unknown, subcutaneous, 0 Refill(s), Inject 2.5 mg under the skin every 7 (seven) days., 0 Refills, 05/03/25 10:57:00 AM EDT, Partial fill upon patient request if the prescription is for a schedule II opioid drug. 05/03/20 25 Active tirzepatide, weight loss, (ZEPBOUND) 5 mg/0.5 mL soln Inject 5 mg into the skin. 01/28/20 25 Active calcium carbonate-vitamin D3 600 mg-10 mcg (400 unit) tablet Take 1 Tablet by mouth 3 (three) times a day. Active levonorgestreL (MIRENA) 21 mcg/24hr (up to 8 yrs) [address] 1 Each into the uterus. Active magnesium oxide 400 mg magnesium tab Take 400 mg by mouth. Active diclofenac sodium (VOLTAREN) [address] tablet 60 each, 0 Refill(s), TAKE 1 TABLET BY MOUTH TWICE DAILY NEEDED FOR PAIN WITH FOOD, 0 Refills, 05/03/25 10:58:00 AM EDT, Partial fill upon patient request if the prescription is for a schedule II opioid drug. 05/03/20 25 Active benzonatate (TESSALON) 200 mg capsule Take 1 Capsule by mouth 3 (three) times daily as needed for cough for up to 7 days. 14 Capsule 07/20/20 25 Active budesonide-formote roL (SYMBICORT) 160-4.5 mcg/actuation inhalerIndications :Post-COVID chronic cough,Moderate persistent asthma, unspecified whether complicated Inhale 2 Puffs into the lungs 2 (two) times daily. 10.2 g 2 07/20/20 25 Active dextromethorphan-g uaifenesin (BIOCOTRON) 5-100 mg/5 mL syrupIndications:C ough, unspecified type Take 5 mL by mouth 3 (three) times daily as needed for cough. 237 mL 07/20/20 25 Active nitrofurantoin, macrocrystal-monoh ydrate, (MACROBID) 100 mg capsuleIndications :Acute cystitis without hematuria Take 1 Capsule by mouth 2 (two) times daily. 10 Capsule 08/01/20 25 Active traZODone (DESYREL) 50 mg tabletIndications: Insomnia, unspecified type Take 1 tablet as needed for sleep. May repeat in one hour if ineffective.. 60 Tablet 2 05/22/20 25 025 Discontin ued(Reord er (E-Cancel Not Sent)) escitalopram (LEXAPRO) 20 mg tabletIndications: MDD (major depressive disorder), recurrent episode, moderate Take 1 Tablet by mouth once daily for 90 days. 30 Tablet 2 05/22/20 25 025 Discontin ued(Reord er (E-Cancel Not Sent)) benzonatate (TESSALON) 200 mg capsule Take 1 Capsule by mouth 3 (three) times daily as needed for cough. 30 Capsule 1 07/20/20 25 025 Discontin ued(Cance lled) budesonide-formote roL (SYMBICORT) 160-4.5 mcg/actuation inhalerIndications :Post-COVID chronic cough,Moderate persistent asthma, unspecified whether complicated Inhale 2 Puffs into the lungs 2 (two) times daily. 10.2 g 2 07/20/20 25 025 Discontin ued(Cance lled) Active Problems Patient Care Coordination No te [...] to physiatry for injections? - Most recent [facility] pulmonology report needed for Lung Nodule finding, last eval on record was before January's office visit. 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 Not sure if patient attended? [facility] - 42-year-old nonsmoker female who was noted to have [address] of chest done about 2-[address]. [address] of chest was done at [facility] in [place], [place]. She was living in [place] at that time. She thinks she may [...] ratio was 87. CT chest done at [facility] 2-3 years ago is not available for my review at this time. IMPRESSION: Subcentimeter lung nodules [address] chest report as well as images are not available for my review at this time. PLAN: 1. Obtain prior CT chest images and result from [facility]. I will have my office request [...] S/P partial thyroidectomy 07/26/2019 Overview (07/26/2019): 10/07/18, [facility] Progress note, H/o partial thyroidectomy in 2013 - biopsy +ve/suspicious. Surgery with Dr. Iverson at [facility]. Grade III Ptosis of breast 07/26/2019 Overview (07/26/2019): 06/24/19, [facility] Plastic Surgery Note, Enrique Samson MD: [...] anemia 04/26/2018 Headache 02/12/2018 Overview (01/07/2023): 02/12/2018 [facility]- CR Spine Lumbar W Obliq min 4v Normal examination of the lumbosacral spine. There is evidence of constipation. Prediabetes 02/12/2018 Encounters Date Type Department Care Team Description 07/28/2025 1:00 PM EDT / Visits [facility] [address] [place] [address] Esther Michel, [employer] MANAGER 07/26/2025 Interim Notes [facility] [address] [place] [address] Magaly May 07/20/2025 11:20 AM EDT Office Visit [facility] [address] [place] [phone] Dylan Toribio PA 07/17/2025 1:20 PM EDT BH/MH Visits [facility] [address] [phone] Elodia Mcclendon PMHNP 07/03/2025 11:15 AM EDT BH/MH Visits [facility] [address] [place] [address] Michel Santana, [employer]NA[employer] 06/20/2025 11:00 AM EDT BH/MH Visits [facility] [address] [place] [address] Esther Michel, [employer] MANAGER 06/15/2025 3:40 PM EDT Office Visit [facility] [address] [place] [address] Jose Eduardo Christine PA-C 06/07/2025 11:15 AM EDT BH/MH Visits [facility] [address] [place] [address] Michel Santana, [employer] MANAGER 05/31/2025 10:30 AM EDT BH/MH Visits [facility] [address] [place] [address] Esther Michel, [employer] MANAGER 05/31/2025 BH/MH TELEPHONE [facility] [address] [place] [address] Carl Sapphire 05/29/2025 BH/MH TELEPHONE [facility] [address] [phone] Carl Sapphire 05/22/2025 1:20 PM EDT BH/MH Visits [facility] [address] [phone] Elodia Mcclendon, JUANJOHNP 05/22/2025 Interim Notes [address] [phone] Magaly May from Last 3 Months Immunizations Immunization Administration Dates Next Due Flu, Multi Dose 0.5 ML 11/17/2019,07/26/2018 Flu, Preservative Free 07/16/2023,2021,08/29/2021,07/10 Hep B,adult,adjuvanted (HEPLISAV) 02/04/2023, PNEUMOCOCCAL CONJUGATE PCV 2 0 (Prevnar 20) 03/22/2025 PNEUMOCOCCAL POLYSACCHARIDE PPV23 (Pneumovax 23) 12/03/2022 TDAP 10/14/2018 ZOSTER VACCINE, RECOMBINANT (SHINGRIX) 3,12/03/2022 Social History Tobacco Use Types Packs/Day Years Used Date Smoking Tobacco: Never Smokeless Tobacco: Never Tobacco Cessation:Counseling Given: Not Answered Alcohol Use Standard Drinks/Week Comments No 0 (1 standard drink = 0.6 oz pur e alcohol) Social Connections Answer Date Recorded How often do you feel lonely or isolated from th ose around you? 1 02/24/2025 Financial Resource Strain Answer Date R ecorded Hard to pay for: Food 2 02/24/2025 Stress Answer Date Recorded Do you feel these kinds of stress these days? 2 02/24/2025 Physical Activity Answer Date Recorded Physical Activity 0 08/23/2020 Food Insecurity Answer Date Recorded Hard to pay for: Food 2 02/24/2025 Transportation Needs Answer Date Record ed Hard to pay for: Transportation 1 02/24/2025 Housing Stability Answer Date Recorded Hard to pay for: Rent/Mortgage payment 2 02/24/2025 Safety and Environment Answer Date Rafi rded Safety 1 02/15/2024 Utilities Answer Date Recorded Hard to pay for: Utilities 2 02/24 Employment Answer Date Recorded Stress 0 08/23/2020 Comments No Sex and Gender Information Value Date Recorded Sex Assigned at Female 02/12/2018 11:45 AM PDT Legal Sex Female 11:09 AM PDT Gender Identity Female 02/12/2018 11:45 AM PDT Sexual Orientation Straight 11/24/2018 11 :05 AM PST Last Filed Vital Signs Vital Sign Reading Time Taken Comments Blood Pressure 118/82 07/20/2025 11:05 AM EDT Pulse 72 07/20/2025 11:05 AM EDT Temperature 36.8 C (98.2 F) 07/20/2025 11:05 AM EDT Respiratory Rate 18 07/20/2025 11:05 AM EDT Oxygen Saturation 98% 07/20/2025 11:05 AM EDT Inhaled Oxygen Concentration - - Weight 89.4 kg (197 lb) 07/20/2025 11:05 AM EDT Height 165.1 cm (5' 5 ) 07/20/2025 11:05 AM EDT Body Mass Index 32.78 07/20/2025 11:05 AM EDT Plan of Treatment Upcoming Encounters Date Type Department Care Team (Late st Contact Info) Description 08/10/2025 2:00 PM EDT BH/MH Visits [facility] [address] [place] [phone] Michel Santana, [employer]GER [address] [place] [address] 08/15/2025 2:40 PM EST Office Visit [facility] [address] [place] [phone] Dylan Toribio PA [address] [place] [address] 10/17/2025 1:20 PM EST BH/MH Visits [facility] [address] [place] [phone] Elodia Mcclendon, JUANJOHNP [address] [place] [address] Health Maintenance Due Date Last Done Comments HPV Screening (self-collect) [address] Colonography 12/26/2019 FIT/gFOBT 12/26/2019 Fecal DNA 12/26/2019 Flexible Sigmoidoscopy 12/26/2019 Imm-Zoster, Recombinant (2 of 2) 2024 02/05/20 23, 12/03/2022 Imm-Influenza (#1) 2025 07/16/2023, 1 10/12/2021, 08/29/2021, Additional history exists Depression Monitoring 06/22/2025 03/22/2025 , 12/14/2024, 09/15/2024, Additional history exists Annual Wellness (Adult): Indicated (All Coverage) 12/14/2025 12/14/2024, 07/16/2023, 03/22/2018 Tobacco Screening 12/14/2025 12/14/2024 Anxiety Screening 03/22/2026 03/22/2025 Pap Smear 03/31/2026 03/31/2023 ([facility] by Outside Provider), 03/23/2023, 01/18/2019 (Managed by Outside Provider) Breast Cancer Screening (Mammogram) 04/18/2026 04/18/2025, 03/02/2024, 02/27/2023, Additional history exists Diabetes Screening 04/18/2026 04/18/2025, 0 12/14/2024, 12/14/2024, Additional history exists Hypertension Screening (#1) 07/20/2026 Cervical Cancer Screening 03/23/2028 Pap + HPV 03/23/2028 03/23/2023 Lipid Screening 04/18/2028 04/18/2025, 03/13, 08/29/2021, Additional history exists Imm-DTaP/Tdap/Td (2 - Td or Tdap) 10/14/2028 019 LARC-Mirena IUD 06/02/2030 06/02/2022 Colonoscopy 02/14/2035 02/14/2025 Colorectal Cancer Screening 02/14/2035 HIV Screening Completed 11/17/2019 Hepatitis C Screening Completed 08/29/2021, 021 Imm-Hepatitis B Completed 02/04/2023, 12/03/2022 Alcohol and Drug Screen Completed 11/18/19, 09/15/2024, 02/15/2024, Additional history exists Imm-Pneumococcal 50+ Completed 03/22/2025, 12/03/19 23 Cervical Ablation/Cold-Knife Conization Discontinued Cervical Cryotherapy Discontinued Colposcopy Discontinued Excision/Leep Discontinued HPV Genotyping Discontinued [id number] Discontinued Vaginal Pap Discontinued Vulvoscopy Discontinued Procedures Procedure Name Priority Date/Time Associated Diagnosis Comments ID NOW INFLUENZA A&B2 (POCT) Routine 07/20/2025 2:02 PM EDT Cough, unspecified type URINE CULTURE W ID & SENS Routine 07/20/2025 11:55 AM EDT RFLX - REFLEXIVE URINE CULTURE Routine 07/20/2025 11:55 AM EDT URINALYSIS, COMPLETE W/REFLEX TO CULTURE Routine 07/20/2025 11:55 AM EDT Bilateral flank pain OTHER ORDERS SCANNED DOCUMENT 07/12/2025 3:00 AM EDT REFERRAL SCANNED DOCUMENT 06/21/2025 3:00 AM EDT URINALYSIS, MULTISTIX (POCT) Routine 06/15/2025 4:01 PM EDT Neck pain HGBA1C W/MPG Routine 04/18/2025 10:34 AM EDT Prediabetes LIPID PANEL Routine 04/18/2025 10:34 AM EDT Prediabetes Myopia of both eyes Fibromyalgia Lumbar herniated disc Class 1 obesity REFERRAL FOR MAMMOGRAM Routine 04/18/2025 3:00 AM EDT Encounter for screening mammogram for malignant neoplasm of breast HISTORIC COLONOSCOPY 02/14/2025 3:00 AM EDT HEPATITIS C AB W/RFLX HCV RNA, QT, RT PCR Routine 08/29/2021 11:48 AM EST from Last 3 Months or Most Recently Relevant to Health Maintenance Results * ID NOW INFLUENZA A&B2 (POCT) Nasopharyngeal Swab Routine (07/20/2025 2:02 PM EDT) INFLUENZA A NEGATIVE NEGATIVE [facility] POCT INFLUENZA B NEGATIVE NEGATIVE [facility] POCT INTERNAL CONTROL PASS PASS [facility] Swab Nasopharyngeal structure / Unknown 07/20/2025 2:02 PM EDT us Sushma [facility] BODY FLUIDS AND STOOL S AMBULATORY Final Result [facility] PO[facility] * URINE CULTURE W ID & SENS Routine (07/20/2025 11:55 AM EDT) Micro Number [id number] 07/22/2025 1:56 AM EDT [facility] SPECIMEN QUALITY Adequate 07/22/2025 1:56 AM EDT [facility] SOURCE: URINE 07/22/2025 1:56 AM EDT [facility] STATUS: FINAL 07/22/2025 1:56 AM EDT [facility] RESULT Less than 10,000 CFU/mL of single Gram positive organism isolated. No further testing will be performed. If clinically indicated, recollection using a method to minimize contamination, with prompt transfer to Urine Culture Transport Tube, is recommended. 07/22/2025 1:56 AM EDT [facility] 07/20/2025 11:5 5 AM EDT 07/20/2025 11:55 AM EDT us Ssuhma [facility] - MICROBIOLOGY AMBULA TORY Final Result [facility] [address] [place] [id number], [employer] [address] [address] * (ABNORMAL) URINALYSIS, COMPLETE W/REFLEX TO CULTURE Urine Routine (07/20/2025 11:55 AM EDT) COLOR YELLOW YELLOW 07/21/2025 5:00 AM EDT [facility] APPEARANCE CLOUDY(A) CLEAR 07/21/2025 5:00 AM EDT [facility] SPECIFIC GRAVITY 1.024 1.001 - 1.035 07/21/2025 5:00 AM EDT [facility] URINE PH 5.5 5.0 - 8.0 07/21/2025 5:00 AM EDT [employer] [facility] GLUCOSE NEGATIVE NEGATIVE 07/21/2025 5:00 AM EDT [employer] [facility] BILIRUBIN NEGATIVE NEGATIVE 07/21/2025 5:00 AM EDT [employer] [facility] KETONES NEGATIVE NEGATIVE 07/21/2025 5:00 AM EDT [employer] [facility] OCCULT BLOOD NEGATIVE NEGATIVE 07/21/2025 5:00 AM EDT [employer] [facility] URINE PROTEIN NEGATIVE NEGATIVE 07/21/2025 5:00 AM EDT [employer] [facility] NITRITE NEGATIVE NEGATIVE 07/21/2025 5:00 AM EDT [employer] [facility] LEUKOCYTE ESTERASE TRACE(A) NEGATIVE 07/21/2025 5:00 AM EDT [employer] [facility] URINE LEUKOCYTES 0-5 0 - 5 /HPF 07/21/2025 5:00 AM EDT [employer] [facility] RBC 0-2 0 - 2 /HPF 07/21/2025 5:00 AM EDT [employer] [facility] SQUAMOUS EPITHELIAL CELLS 10-20(A) < OR = 5 /HPF 07/21/2025 5:00 AM EDT [employer] [facility] BACTERIA MODERATE(A) NONE SEEN /HPF 07/21/2025 5:00 AM EDT [employer] [facility] HYALINE CAST NONE SEEN NONE SEEN /LPF 07/21/2025 5:00 AM [employer] [facility] SEE NOTE SEE NOTE 07/21/2025 5:00 AM EDT [employer] [facility] Urine Urine specimen / Unknown 07/20/2025 11:55 AM EDT 07/21/2025 4:15 AM EDT Narrative [employer] [facility] - 07/21/2025 5:22 AM EDT This urine was analyzed for the presence of WBC, RBC, bacteria, casts, and other formed elements. Only those elements seen were reported. . . us Sushma [facility] URINE AMBULATORY Adalgisa l Result [employer] [address] [address], [employer] [address] [address] * RFLX - REFLEXIVE URINE CULTURE Routine (07/20/2025 11:55 AM EDT) REFLEXIVE URINE CULTURE SEE NOTE 07/21/2025 5:00 AM EDT [facility] 07/20/2025 11:5 5 AM EDT 07/21/2025 4:15 AM EDT Narrative [facility] - 07/21/2025 5:22 AM EDT CULTURE INDICATED - RESULTS TO FOLLOW us Sushma [facility] - MICROBIOLOGY AMBULA TORY Final Result [facility] [address] [place] [id number], [facility] [address] [address] * OTHER ORDERS SCANNED DOCUMENT (07/12/2025 3:00 AM EDT) 07/12/2025 3:00 AM EDT Dylan ZAPATA SCAN OTHER ORDERS Final Result * REFERRAL SCANNED DOCUMENT (06/21/2025 3:00 AM EDT) 06/21/2025 3:00 AM EDT us Dylan ZAPATA SCAN REFERRAL Final Result * (ABNORMAL) URINALYSIS, MULTISTIX (POCT) Urine Routine (06/15/2025 4:01 PM EDT) URINE GLUCOSE NEGATIVE NEGATIVE [facility] PO[facility] URINE BILIRUBIN NEGATIVE NEGATIVE [facility] URINE KETONES TRACE(A) NEGATIVE [facility] POCT URINE SPECIFIC GRAVITY 1.030(A) <=1.005 - >=1.030 [facility] URINE BLOOD NEGATIVE NEGATIVE [facility] POCT URINE PH 5.5 5.0 - 8.5 [facility] URINE PROTEIN Negative Negative [facility] POCT URINE UROBILINOGEN 0.2 0.2 - 1.0 E.U./dL [facility] POCT URINE NITRITE NEGATIVE NEGATIVE [facility] URINE LEUKOCYTES NEGATIVE NEGATIVE [facility] URINE COLOR YELLOW STRAW, YELLOW [facility] ODOR URINE Normal Normal [facility] CLARITY OF URINE CLEAR CLEAR [facility] PO[facility] Comment:error Urine Urine specimen / Unknown 06/15/2025 4:01 PM EDT Jose Eduardo Christine PA-C LAB URINE AMBULATORY Edited R esult - Final [facility] PO[facility] * HGBA1C W/MPG Routine (04/18/2025 10:34 AM EDT) HEMOGLOBIN A1C 5.6 <5.7 % [facility] Comment: For the purpose of screening for the presence of diabetes: <5.7% Consistent with the absence of diabetes 5.7-6.4% Consistent with increased risk for diabetes (prediabetes) > or =6.5% Consistent with diabetes This assay result is consistent with a decreased risk of diabetes. Currently, no consensus exists regarding use of hemoglobin A1c for diagnosis of diabetes in children. According to [place] Diabetes Association (ADA) guidelines, hemoglobin A1c <7.0% represents optimal control in non- diabetic patients. Different metrics may apply to specific patient populations. Standards of Medical Care in Diabetes(ADA). MEAN PLASMA GLUCOSE 122 mg/dL (calc) [facility] Blood Blood / Unknown 04/18/2025 1 0:34 AM EDT 04/18/2025 10:34 AM EDT Dylan [facility] - BLOOD DRAW Edited Result - Final [employer] [facility] [facility] [address] [address], [employer] [address] [address] * (ABNORMAL) LIPID PANEL Routine (04/18/2025 10:34 AM EDT) CHOLESTEROL, TOTAL 192 <200 mg/dL [employer] [facility] HDL CHOLESTEROL 47(L) > OR = 50 mg/dL [facility] TRIGLYCERIDES 68 <150 mg/dL [facility] LDL-CHOLESTEROL 129(H) 99 mg/dL (calc) [facility] Comment: Reference range: <100 Desirable range <100 mg/dL for primary prevention; <70 mg/dL for patients with CHD or diabetic patients with > or = 2 CHD risk factors. LDL-C is now calculated using the Rhona calculation, which is a validated novel method providing better accuracy than the Friedewald equation in the estimation of LDL-C. Gene SS et al. BALDEV. 2013;310(19): 9311-9908 (http://education.ScanCafe/faq/QQK483) CHOL/HDLC RATIO 4.1 <5.0 (calc) [facility] NON-HDL CHOLESTEROL 145(H) <130 mg/dL (calc) [facility] Comment: For patients with diabetes plus 1 major ASCVD risk factor, treating to a non-HDL-C goal of <100 mg/dL (LDL-C of <70 mg/dL) is considered a therapeutic option. Blood Blood / Unknown 04/18/2025 1 0:34 AM EDT 04/18/2025 10:34 AM EDT us Dylan [facility] - BLOOD DRAW Final Result [facility] [address] [address], [employer] [address] [address] * REFERRAL FOR MAMMOGRAM (04/18/2025 3:00 AM EDT) 04/18/2025 3:00 AM EDT us Dylan [facility]APATA IMG RFL MAMMO Final Result * HISTORIC COLONOSCOPY (02/14/2025 3:00 AM EDT) 02/14/2025 3:00 AM EDT us Dylan [facility] PROCEDURES Final Result * HEPATITIS C AB W/RFLX HCV RNA, QT, RT PCR (08/29/2021 11:48 AM EST) HEPATITIS C ANTIBODY NON-REACT AMBER NON-REACT AMBER [employer] [facility] SIGNAL TO CUT-OFF 0.01 <1.00 [employer] [facility] Comment: HCV antibody was non-reactive. There is no laboratory evidence of HCV infection. In most cases, no further action is required. However, if recent HCV exposure is suspected, a test for HCV RNA (test code 25616) is suggested. For additional information please refer to http://education.GreenWatt/faq/RAD47h9 (This link is being provided for informational/ educational purposes only.) 08/29/2021 11:4 8 AM EST 08/29/2021 11:49 AM EST [employer] LAB - BLOOD DRAW Final Resul t [facility] [address] [address], [employer] [facility] [address] [address] from Last 3 Months or Most Recently Relevant to Health Maintenance Insurance [facility] [employer] [address] [employer] Care Teams Parts Clerk Plant Maintenance Relationship Specialty Start Date End Date Dylan Toribio PA [address] [place] [address] PCP - General Internal Medicine 07/20/18
== END 2025-08-01 12:31 | disposition home or self-care (01) ==
LOC: HO.HSMS 11:06
PROVIDERS: PCP Physician Assistant; Visit Provider Nurse Practitioner Family
DX: R20.2 Paresthesia of skin (principal); G43.009 Migraine without aura, not intractable, without status migrainosus; R90.82 White matter disease, unspecified; R06.83 Snoring
CPT/HCPCS: 99214

== ENCOUNTER → 2025-08-01 11:05 | Outpatient (BNVA) | payer MEDICAID, SELFPAY | PROVIDERS: PCP Physician Assistant; Visit Provider Nurse Practitioner Family | DX: R20.2 Paresthesia of skin (principal); G43.009 Migraine without aura, not intractable, without status migrainosus; R90.82 White matter disease, unspecified; R06.83 Snoring | CPT/HCPCS: 99212 ==